=== PATIENT | female | born 1945 | race Caucasian/White ===

== ENCOUNTER → 2020-07-01 13:07 | Outpatient (BNVA) | payer MEDICARE, SELFPAY | PROVIDERS: PCP Internal Medicine; Visit Provider Hospitalist | DX: J84.9 Interstitial pulmonary disease, unspecified (principal); M35.02 Sjogren syndrome with lung involvement; R06.00 Dyspnea, unspecified; E66.9 Obesity, unspecified | CPT/HCPCS: 99212 ==

== ENCOUNTER 2020-07-05 12:38 | Outpatient (REF) | payer MEDICARE, SELFPAY ==
[2020-07-05 13:31] LABS: MANUAL DIFF FLAG NO
[2020-07-05 13:35] LABS: Basophils Absolute Auto 0.1 X10*3/uL (0.0-0.2); Basophils Percent Auto 1.1 % (0-2); Eosinophils Absolute Auto 0.5 X10*3/uL (0.0-0.4); Eosinophils Percent Auto 8.4 % (0-4); Hematocrit 44.5 % (37-47); Hemoglobin 14.2 g/dl (12.0-16.0); Imm Gran Abs Auto 0.01 X10*3/uL (0.00-0.03); Imm Gran Pct Auto 0.2 % (0.0-0.4); Lymphocytes Absolute Auto 1.2 X10*3/uL (1.2-4.9); Mean Corpuscular HGB Conc 31.9 g/dl (31.0-35.0); Mean Corpuscular Hemoglobin 29.6 pg (27.0-33.0); Mean Corpuscular Volume 92.7 fL (80-98); Mean Platelet Volume 9.9 fL (9.4-12.3); Monocytes Absolute Auto 0.6 X10*3/uL (0.1-1.2); Monocytes Percent Auto 9.8 % (2-11); Neutrophils Absolute Auto 3.4 X10*3/uL (2.0-8.3); Neutrophils Percent Auto 59.5 % (45-73); Platelet Count 245 X10*3/uL (160-400); Red Cell Distribution Width 12.7 % (11.0-16.0); White Blood Count 5.7 X10*3/uL (4.8-10.8)
[2020-07-05 13:59] LABS: Alanine Aminotransferase 12 U/L (0-31); Alkaline Phosphatase 56 U/L (39-117); Anion Gap 11 (12-20); Aspartate Amino Transferase 17 U/L (5-31); Bilirubin Direct 0.3 mg/dL (0.0-0.5); Bilirubin Total 0.7 mg/dL (0.0-1.0); Blood Urea Nitrogen 10 mg/dL (9-16); Calcium 9.1 mg/dL (8.4-10.2); Carbon Dioxide 31 mmol/L (22-29); Chloride 105 mmol/L (96-108); Cholesterol 222 mg/dL; Estimated Glomerular Filt Rate > 60; Glucose Random 103 mg/dL (60-115); HDL Cholesterol 57 mg/dL; Sodium 142 mmol/L (135-145); Total Protein 7.8 g/dL (6.5-8.0)
[2020-07-05 14:21] LABS: Thyroid Stimulating Hormone 2.64 uIU/mL (0.32-4.0)
[2020-07-05 14:31] LABS: Erythrocyte Sedimentation Rate 27 MM/HR (0-20)
[2020-07-06 07:57] LABS: LDL Cholesterol Direct 155 mg/dL (<100)
[2020-07-09 15:42] LABS: VITAMIN D (1,25 OH) D3 53 pg/mL; Vit D (1,25-Dihydroxy) Total 53 pg/mL (18-72); Vitamin D (1,25 OH) D2 <8 pg/mL
== END 2020-07-05 12:39 | disposition home or self-care (01) ==
LOC: HO.LAB 12:38
PROVIDERS: PCP Internal Medicine; Visit Provider Hospitalist
DX: M35.02 Sjogren syndrome with lung involvement (principal); E66.9 Obesity, unspecified; R06.00 Dyspnea, unspecified
CPT/HCPCS: 36415; 80048; 80076; 82306; 82465; 82652; 83718; 83721; 84443; 85025; 85652

== ENCOUNTER 2020-08-30 12:52 | Outpatient (REF) | payer MEDICARE, SELFPAY ==
--- NOTE | ~2020-08-30 | CT_ITS ---
EXAMINATION: CT CHEST WITHOUT CONTRAST CLINICAL INFORMATION: Interstitial pulmonary disease. COMPARISON: Multiple priors, most recently 06/06/2019. TECHNIQUE: Multidetector volumetric CT imaging of the chest was done. Axial MIP volume rendering provided. Sagittal and coronal reformatted images were obtained. This CT examination was performed using dose optimization techniques as appropriate, variously including the following: *Automated exposure control *Adjustment of mA and/or kV according to patient size (this includes techniques or standardized protocols for targeted exams where dose is matched to indication/reason for exam; i.e. extremities or head) *Use of iterative reconstruction technique DLP: 338 mGy-cm FINDINGS: LUNGS: The central airways are patent. Septal thickening noted, greatest at the lower lungs. Scattered mosaic groundglass appearance of the lung parenchyma. No dense consolidation. Minimal bronchiectasis. No honeycombing. The extent of groundglass disease is mildly increased at the apices compared to the 2019 study. No pneumothorax. No emphysema noted. MEDIASTINUM: Normal heart size. No pericardial effusion. No mediastinal lymphadenopathy. PLEURA: There is no pleural effusion. No pleural mass or thickening. AXILLA: No lymphadenopathy. UPPER ABDOMEN: Unremarkable. OSSEOUS STRUCTURES: No acute or suspicious osseous abnormality. Degenerative changes noted in the spine. CT/CT chest wo con IMPRESSION: Changes of interstitial lung disease with septal thickening and groundglass attenuation in the lungs. Mild increase in groundglass disease at the upper lungs when compared to prior.
== END 2020-08-30 12:53 | disposition home or self-care (01) ==
LOC: HO.CT 12:52
PROVIDERS: Visit Provider Hospitalist
DX: R06.00 Dyspnea, unspecified (principal); E66.9 Obesity, unspecified; M35.02 Sjogren syndrome with lung involvement; J84.9 Interstitial pulmonary disease, unspecified
CPT/HCPCS: 71250

== ENCOUNTER 2020-09-16 08:12 | Outpatient (REF) | payer MEDICARE, SELFPAY ==
[2020-09-16 09:46] LABS: MANUAL DIFF FLAG NO
[2020-09-16 09:54] LABS: Basophils Absolute Auto 0.1 X10*3/uL (0.0-0.2); Basophils Percent Auto 0.9 % (0-2); Eosinophils Absolute Auto 0.3 X10*3/uL (0.0-0.4); Eosinophils Percent Auto 6.2 % (0-4); Hematocrit 41.9 % (37-47); Hemoglobin 13.7 g/dl (12.0-16.0); Imm Gran Abs Auto 0.01 X10*3/uL (0.00-0.03); Imm Gran Pct Auto 0.2 % (0.0-0.4); Lymphocytes Absolute Auto 1.1 X10*3/uL (1.2-4.9); Lymphocytes Percent Auto 20.6 % (20-40); Mean Corpuscular HGB Conc 32.7 g/dl (31.0-35.0); Mean Corpuscular Hemoglobin 29.9 pg (27.0-33.0); Mean Corpuscular Volume 91.5 fL (80-98); Mean Platelet Volume 9.9 fL (9.4-12.3); Monocytes Absolute Auto 0.6 X10*3/uL (0.1-1.2); Monocytes Percent Auto 10.4 % (2-11); Neutrophils Absolute Auto 3.3 X10*3/uL (2.0-8.3); Neutrophils Percent Auto 61.7 % (45-73); Platelet Count 241 X10*3/uL (160-400); Red Blood Count 4.58 X10*6/uL (4.20-5.50); Red Cell Distribution Width 13.1 % (11.0-16.0); White Blood Count 5.3 X10*3/uL (4.8-10.8)
[2020-09-16 09:57] LABS: Glucose Urine UA NEG (NEG); Leukocyte Esterase Urine NEG (NEG); Nitrite Urine NEG (NEG); PH 5.5 (5.0-8.0); Specific Gravity - Urine >= 1.030 (1.005-1.025); Urine Blood NEG (NEG); Urine Ketones NEG (NEG); Urine Protein NEG (NEG-TRACE)
[2020-09-16 09:59] LABS: Appearance Urine HAZY; Color Urine YELLOW
[2020-09-16 10:13] LABS: Mucus Urine 2+ /LPF; Renal Epithelial Cells Urine TRACE /LPF; Squamous Epithelial Cell Urine TRACE /LPF
[2020-09-16 10:44] LABS: Alanine Aminotransferase 11 U/L (0-31); Albumin Level 3.9 g/dL (3.5-5.0); Alkaline Phosphatase 47 U/L (39-117); Anion Gap 15 (12-20); Aspartate Amino Transferase 19 U/L (5-31); Bilirubin Total 0.5 mg/dL (0.0-1.0); Blood Urea Nitrogen 13 mg/dL (9-16); C Reactive Protein 0.19 mg/dL (< or = 0.50); Calcium 8.8 mg/dL (8.4-10.2); Carbon Dioxide 24 mmol/L (22-29); Chloride 106 mmol/L (96-108); Estimated Glomerular Filt Rate 60; Glucose Random 121 mg/dL (60-115); HBsAGNum1 0.14 S/CO (0.00-0.99); Hepatitis B Surface Antigen Negative (Negative); Potassium 3.8 mmol/L (3.3-5.1); Rheumatoid Factor 153.1 IU/mL (<15.0); Sodium 141 mmol/L (135-145); Total Protein 7.6 g/dL (6.5-8.0)
[2020-09-16 10:59] LABS: HBS Num1 0.66 mIU/mL (0-7.99); HBc Num1 0.05 S/CO (0.00-0.79); Hepatitis B Core Antibody Nonreactive (Nonreactive); ~HepC Num1 0.13 S/CO (0.00-0.79); ~Hepatitis B Surface Antibody NONREACTIVE (Nonreactive); ~Hepatitis C Antibody Nonreactive (Nonreactive)
[2020-09-16 11:16] LABS: Erythrocyte Sedimentation Rate 23 MM/HR (0-20)
[2020-09-17 05:21] LABS: Hepatitis A Antibody IgM 0.21 Index (0-0.79); ~Hepatitis A Antibody IgM Nonreactive (Nonreactive)
[2020-09-17 12:12] LABS: Anti DNA DS Antibody <1 IU/mL; Antibody to SS-A Antigen >8.0 POS AI (<1.0 NEG); Antibody to SS-B Antigen >8.0 POS AI (<1.0 NEG); SM/Ribonucleoprotein Ab <1.0 NEG AI (<1.0 NEG); Smith Protein <1.0 NEG AI (<1.0 NEG)
[2020-09-17 14:13] LABS: IgA 239 mg/dL (70-320); IgG 1886 mg/dL (600-1540); IgM 146 mg/dL (50-300)
[2020-09-17 14:36] LABS: Prot Elec - Albumin 3.9 g/dL (3.8-4.8); Prot Elec - Alpha1 0.3 g/dL (0.2-0.3); Prot Elec - Alpha2 0.7 g/dL (0.5-0.9); Prot Elec - Beta 1 0.4 g/dL (0.4-0.6); Prot Elec - Beta 2 0.4 g/dL (0.2-0.5); Prot Elec - Gamma 1.8 g/dL (0.8-1.7); Prot Elec - Total Protein 7.6 g/dL (6.1-8.1)
[2020-09-17 22:17] LABS: Cyclic Citrullinated Peptide <16 UNITS
[2020-09-18 05:41] LABS: Complement C3 121 mg/dL (83-193)
== END 2020-09-16 08:13 | disposition home or self-care (01) ==
LOC: HO.LAB 08:12
PROVIDERS: PCP Internal Medicine; Visit Provider Student in an Organized Health Care Education/Training Program
DX: M35.02 Sjogren syndrome with lung involvement (principal); Z79.52 Long term (current) use of systemic steroids
CPT/HCPCS: 36415; 80053; 81001; 82784; 84155; 84165; 85025; 85652; 86140; 86160; 86200; 86225; 86235; 86334; 86431; 86704; 86706; 86709; 86803; 87340; 99202

== ENCOUNTER 2020-09-21 10:46 | Outpatient (REF) | payer MEDICARE, SELFPAY ==
--- NOTE | ~2020-09-21 | MM_ITS ---
EXAMINATION: BONE DENSITOMETRY CLINICAL INDICATION: Long-term (current) use of systemic steroids. COMPARISON: Previous BD dated 03/09/2017 and baseline BD dated 10/01/2008 (lumbar spine). This is the initial examination of the left forearm radius 33%. TECHNIQUE: Using a [employer] DXA System (software version: 13.1) manufactured by [employer], dual-energy x-ray absorptiometry was performed of the lumbar spine and left forearm radius 33%. The patient has had bilateral hip replacements. The images are of good technical quality. Summary results are attached. FINDINGS: AP SPINE L1-L4 (excluding L2 and L3): The data of L1-L4 has been changed to exclude the L2 and L3 vertebral bodies, because degenerative sclerosis at these levels may cause overestimation of lumbar spine density. Current: BMD 1.292 g/cm2, Z-score 1.6, T-score 1.1, normal, 8.2% decrease from previous, 14.0% decrease from baseline (<5% change is not significant). Prior: BMD 1.407 g/cm2. Baseline: BMD 1.502 g/cm2. LEFT FOREARM RADIUS 33%: BMD 0.943 g/cm2, Z-score 2.9, T-score 0.8, normal. IDENTIFIED RISK FACTORS: Height loss. Low calcium intake. Chronic glucocorticoids. Menopause. HISTORY OF FRACTURE: None listed. MEDICATIONS: Vitamin D. MM/XR DEXA axial skeleton IMPRESSION: 1. DIAGNOSIS: Normal bone density based on the lowest T-score value of 0.8 in the left forearm radius 33% applying World Health Organization criteria. 2. 10-YEAR FRACTURE RISK PREDICTION, FRAX: Not performed in this patient without a femoral neck BMD measurement. 3. Treatment Recommendations: NOF guidelines recommend consideration for treatment in postmenopausal women and men age 50 and older presenting with the following: -A hip or vertebral (clinical or morphometric) fracture. -T-score less than or equal to -2.5 at the femoral neck or spine after appropriate evaluation to exclude secondary causes. -Low bone mass at the hip or spine and a 10-year fracture probability by FRAX of greater than or equal to 3% for hip fracture or greater than or equal to 20% for major osteoporotic fracture based on the [place] adapted WHO algorithm. 4. Other Recommendations: All treatment decisions require clinical judgment and consideration of individual patient factors, including patient preferences, comorbidities, previous drug use, risk factors not captured in the FRAX model (e.g. frailty, falls, vitamin D deficiency, increased bone turnover, interval significant decline in bone density) and possible under or overestimation of fracture risk by FRAX. FUTURE SCAN RECOMMENDATION: People with diagnosed cases of osteoporosis or at high risk for fracture should have regular bone mineral density tests. For patients eligible for Medicare, routine testing is allowed once every 2 years. The testing frequency can be increased to one year for patients who have rapidly progressing disease, those who are receiving or discontinuing medical therapy to restore bone mass, or have additional risk factors.
== END 2020-09-21 10:47 | disposition home or self-care (01) ==
LOC: HO.MAMMO 10:46
PROVIDERS: Visit Provider Student in an Organized Health Care Education/Training Program
DX: Z13.820 Encounter for screening for osteoporosis (principal); E27.49 Other adrenocortical insufficiency; Z78.0 Asymptomatic menopausal state; Z79.52 Long term (current) use of systemic steroids; Z79.899 Other long term (current) drug therapy
CPT/HCPCS: 77080

== ENCOUNTER → 2020-10-12 10:32 | Outpatient (BNVA) | payer MEDICARE, SELFPAY | PROVIDERS: PCP Internal Medicine; Visit Provider Student in an Organized Health Care Education/Training Program | DX: M35.02 Sjogren syndrome with lung involvement (principal); R76.8 Other specified abnormal immunological findings in serum; Z79.52 Long term (current) use of systemic steroids | CPT/HCPCS: 99212 ==

== ENCOUNTER 2020-11-04 13:01 | Outpatient (REF) | payer MEDICARE, SELFPAY ==
--- NOTE | ~2020-11-04 | XR_ITS ---
EXAMINATION: XR HAND WRIST, RIGHT XR HAND WRIST, LEFT CLINICAL INFORMATION: R76.8 - Other specified abnormal immunological findings. CT chest 2019 report notes history of Sjogren's syndrome. COMPARISON: CT chest 08/30/2020; bone densitometry 09/21/2020 TECHNIQUE: The right hand and wrist are imaged together in 3 large arrpc-wp-[id number] view images with additional navicular view provided for a total of 4 views. The left hand and wrist are imaged together in 3 large iebmx-jp-opob view images with additional navicular view provided for a total of 4 views. There are total of 8 views. FINDINGS: Right: There is no fracture or dislocation or destructive process. The ulnar variance is neutral. There is mild narrowing lateral carpus at the triscaphe joint and osteoarthritic changes at the first carpometacarpal joint. No erosive change or carpal chondrocalcinosis. There is narrowing of the second and third MCP joints. Spurring is present third metacarpal head possibly related to old injury. No significant joint narrowing PIP joints. There are degenerative changes DIP joints greatest second and third fingers. No erosive changes. Left: There is no fracture or dislocation or destructive process. The ulnar variance is neutral. There is mild narrowing lateral carpus at the triscaphe joint and osteoarthritic changes first carpometacarpal joint. There is mild narrowing first MCP joint. No erosive change. Mild degenerative change second and third PIP joints and degenerative changes DIP joints greatest second and third fingers. No erosive changes. XR/XR hand wrist RT IMPRESSION: 1. Bilateral narrowing triscaphe joints and bilateral osteoarthritis first carpal metacarpal joints. 2. Narrowing right second and third MCP joints and left first MCP joint. 3. Variable degenerative changes interphalangeal joints. 4. No erosive changes.
--- NOTE | ~2020-11-04 | XR_ITS ---
EXAMINATION: XR HAND WRIST, RIGHT XR HAND WRIST, LEFT CLINICAL INFORMATION: R76.8 - Other specified abnormal immunological findings. CT chest 2019 report notes history of Sjogren's syndrome. COMPARISON: CT chest 08/30/2020; bone densitometry 09/21/2020 TECHNIQUE: The right hand and wrist are imaged together in 3 large iirsu-bg-faeq view images with additional navicular view provided for a total of 4 views. The left hand and wrist are imaged together in 3 large xgkrv-qw-coqt view images with additional navicular view provided for a total of 4 views. There are total of 8 views. FINDINGS: Right: There is no fracture or dislocation or destructive process. The ulnar variance is neutral. There is mild narrowing lateral carpus at the triscaphe joint and osteoarthritic changes at the first carpometacarpal joint. No erosive change or carpal chondrocalcinosis. There is narrowing of the second and third MCP joints. Spurring is present third metacarpal head possibly related to old injury. No significant joint narrowing PIP joints. There are degenerative changes DIP joints greatest second and third fingers. No erosive changes. Left: There is no fracture or dislocation or destructive process. The ulnar variance is neutral. There is mild narrowing lateral carpus at the triscaphe joint and osteoarthritic changes first carpometacarpal joint. There is mild narrowing first MCP joint. No erosive change. Mild degenerative change second and third PIP joints and degenerative changes DIP joints greatest second and third fingers. No erosive changes. XR/XR hand wrist LT IMPRESSION: 1. Bilateral narrowing triscaphe joints and bilateral osteoarthritis first carpal metacarpal joints. 2. Narrowing right second and third MCP joints and left first MCP joint. 3. Variable degenerative changes interphalangeal joints. 4. No erosive changes.
== END 2020-11-04 13:02 | disposition home or self-care (01) ==
LOC: HO.XRAY 13:01
PROVIDERS: Absent Provider Student in an Organized Health Care Education/Training Program; PCP Internal Medicine; Visit Provider Hospitalist
DX: M35.02 Sjogren syndrome with lung involvement (principal); J84.9 Interstitial pulmonary disease, unspecified; R06.00 Dyspnea, unspecified; R76.8 Other specified abnormal immunological findings in serum; E66.01 Morbid (severe) obesity due to excess calories; Z68.41 Body mass index [BMI] 40.0-44.9, adult; Z79.52 Long term (current) use of systemic steroids
CPT/HCPCS: 73110; 73130; 99212

== ENCOUNTER 2020-11-12 11:48 | Outpatient (REF) | payer MEDICARE, SELFPAY ==
--- NOTE | ~2020-11-12 | MM_ITS ---
EXAMINATION: MM SCREENING DIGITAL BREAST TOMOSYNTHESIS, BILATERAL CLINICAL INFORMATION: Screening. Asymptomatic. The lifetime risk of breast cancer based on the Tyrer-Cuzick Model is 4.1%. COMPARISON: Mammography: November 11, 2018 and studies dating back to January 23, 2013 TECHNIQUE: Digital breast tomosynthesis is performed in both the craniocaudal and mediolateral oblique views along with computer-aided detection (CAD). Synthesized 2D images are generated from the tomosynthesis. FINDINGS: There are scattered areas of fibroglandular density (ACR BI-RADS breast composition Category b). There are no significant masses, abnormal calcifications, or other abnormalities. MM/MM tomosynthesis screening BI IMPRESSION: There are no significant changes from prior study. ASSESSMENT: BI-RADS 1: Negative RECOMMENDATION: Routine annual mammography screening. This patient's information was entered into a reminder system with a target due date for their next mammogram.
== END 2020-11-12 11:49 | disposition home or self-care (01) ==
LOC: HO.MAMMO 11:48
PROVIDERS: Visit Provider Internal Medicine
DX: Z12.31 Encounter for screening mammogram for malignant neoplasm of breast (principal)
CPT/HCPCS: 77063; 77067

== ENCOUNTER 2021-01-11 10:04 | Outpatient (REF) | payer MEDICARE, SELFPAY ==
[2021-01-11 10:54] LABS: MANUAL DIFF FLAG NO
[2021-01-11 10:57] LABS: Basophils Percent Auto 0.7 % (0-2); Eosinophils Absolute Auto 0.4 X10*3/uL (0.0-0.4); Eosinophils Percent Auto 7.4 % (0-4); Hematocrit 43.8 % (37-47); Hemoglobin 14.1 g/dl (12.0-16.0); Imm Gran Abs Auto 0.01 X10*3/uL (0.00-0.03); Imm Gran Pct Auto 0.2 % (0.0-0.4); Lymphocytes Absolute Auto 1.3 X10*3/uL (1.2-4.9); Lymphocytes Percent Auto 21.7 % (20-40); Mean Corpuscular HGB Conc 32.2 g/dl (31.0-35.0); Mean Corpuscular Hemoglobin 29.7 pg (27.0-33.0); Mean Corpuscular Volume 92.4 fL (80-98); Mean Platelet Volume 9.7 fL (9.4-12.3); Monocytes Absolute Auto 0.6 X10*3/uL (0.1-1.2); Monocytes Percent Auto 10.4 % (2-11); Neutrophils Absolute Auto 3.5 X10*3/uL (2.0-8.3); Neutrophils Percent Auto 59.6 % (45-73); Platelet Count 235 X10*3/uL (160-400); Red Blood Count 4.74 X10*6/uL (4.20-5.50); Red Cell Distribution Width 12.9 % (11.0-16.0); White Blood Count 5.9 X10*3/uL (4.8-10.8)
[2021-01-11 11:26] LABS: Alanine Aminotransferase 12 U/L (0-31); Alkaline Phosphatase 49 U/L (39-117); Anion Gap 12 (12-20); Aspartate Amino Transferase 19 U/L (5-31); Bilirubin Total 0.8 mg/dL (0.0-1.0); Blood Urea Nitrogen 12 mg/dL (9-16); Calcium 9.6 mg/dL (8.4-10.2); Carbon Dioxide 29 mmol/L (22-29); Chloride 106 mmol/L (96-108); Estimated Glomerular Filt Rate 57; Glucose Random 101 mg/dL (60-115); Potassium 4.7 mmol/L (3.3-5.1); Sodium 142 mmol/L (135-145); Total Protein 7.9 g/dL (6.5-8.0)
[2021-01-11 11:59] LABS: Erythrocyte Sedimentation Rate 25 MM/HR (0-20)
== END 2021-01-11 10:05 | disposition home or self-care (01) ==
LOC: HO.LAB 10:04
PROVIDERS: PCP Internal Medicine; Visit Provider Student in an Organized Health Care Education/Training Program
DX: M35.02 Sjogren syndrome with lung involvement (principal)
CPT/HCPCS: 36415; 80053; 85025; 85652; 86140

== ENCOUNTER → 2021-01-18 11:26 | Outpatient (BNVA) | payer MEDICARE, SELFPAY | PROVIDERS: Visit Provider Student in an Organized Health Care Education/Training Program | DX: M35.02 Sjogren syndrome with lung involvement (principal); R76.8 Other specified abnormal immunological findings in serum; Z79.52 Long term (current) use of systemic steroids | CPT/HCPCS: 99212 ==

== ENCOUNTER 2021-05-04 12:03 | Outpatient (REF) | payer MEDICARE, SELFPAY ==
[2021-05-04 12:22] LABS: MANUAL DIFF FLAG NO
[2021-05-04 13:07] LABS: Basophils Absolute Auto 0.1 X10*3/uL (0.0-0.2); Basophils Percent Auto 0.9 % (0-2); Eosinophils Absolute Auto 0.5 X10*3/uL (0.0-0.4); Eosinophils Percent Auto 8.3 % (0-4); Hematocrit 43.2 % (37.0-47.0); Hemoglobin 14.1 g/dl (12.0-16.0); Imm Gran Abs Auto 0.01 X10*3/uL (0.00-0.03); Imm Gran Pct Auto 0.2 % (0.0-0.4); Lymphocytes Absolute Auto 1.4 X10*3/uL (1.2-4.9); Lymphocytes Percent Auto 26.3 % (20-40); Mean Corpuscular HGB Conc 32.6 g/dl (31.0-35.0); Mean Corpuscular Hemoglobin 29.7 pg (27.0-33.0); Mean Corpuscular Volume 91.1 fL (80.0-98.0); Mean Platelet Volume 10.4 fL (9.4-12.3); Monocytes Absolute Auto 0.6 X10*3/uL (0.1-1.2); Monocytes Percent Auto 10.1 % (2-11); Neutrophils Absolute Auto 2.9 x10*3/uL (2.0-8.3); Neutrophils Percent Auto 54.2 % (45-73); Platelet Count 237 X10*3/uL (160-400); Red Blood Count 4.74 X10*6/uL (4.20-5.50); Red Cell Distribution Width 13.2 % (11.0-16.0); White Blood Count 5.4 X10*3/uL (4.8-10.8)
[2021-05-04 13:31] LABS: Alanine Aminotransferase 16 U/L (0-31); Alkaline Phosphatase 53 U/L (39-117); Anion Gap 13 (12-20); Aspartate Amino Transferase 23 U/L (5-31); Bilirubin Total 0.8 mg/dL (0.0-1.0); Blood Urea Nitrogen 11 mg/dL (9-16); C Reactive Protein 0.13 mg/dL (< or = 0.50); Calcium 9.5 mg/dL (8.4-10.2); Carbon Dioxide 29 mmol/L (22-29); Chloride 104 mmol/L (96-108); Cholesterol 229 mg/dL; Estimated Glomerular Filt Rate 57; Glucose Random 107 mg/dL (60-115); HDL Cholesterol 54 mg/dL; LDL Cholesterol Calculated 146 mg/dl; Potassium 4.8 mmol/L (3.3-5.1); Sodium 141 mmol/L (135-145); Total Protein 7.8 g/dL (6.5-8.0); Triglycerides 145 mg/dL
[2021-05-04 13:53] LABS: Free T4 (Free Thyroxine) 0.91 ng/dL (0.71-1.85); Thyroid Stimulating Hormone 2.72 uIU/mL (0.32-4.0)
[2021-05-04 14:03] LABS: Erythrocyte Sedimentation Rate 27 MM/HR (0-20)
[2021-05-04 14:16] LABS: Vitamin B12 298 pg/mL (200-900)
== END 2021-05-04 12:04 | disposition home or self-care (01) ==
LOC: HO.LAB 12:03
PROVIDERS: Absent Provider Student in an Organized Health Care Education/Training Program; PCP Internal Medicine; Visit Provider Internal Medicine
DX: M35.02 Sjogren syndrome with lung involvement (principal); E78.00 Pure hypercholesterolemia, unspecified; R53.83 Other fatigue
CPT/HCPCS: 36415; 80053; 80061; 82607; 84439; 84443; 85025; 85652; 86140

== ENCOUNTER → 2021-05-06 12:47 | Outpatient (BNVA) | payer MEDICARE, SELFPAY | PROVIDERS: PCP Internal Medicine; Visit Provider Hospitalist | DX: M35.02 Sjogren syndrome with lung involvement (principal); J84.9 Interstitial pulmonary disease, unspecified; F51.01 Primary insomnia; E66.01 Morbid (severe) obesity due to excess calories; Z68.41 Body mass index [BMI] 40.0-44.9, adult; Z79.52 Long term (current) use of systemic steroids | CPT/HCPCS: 99212 ==

== ENCOUNTER → 2021-09-02 12:56 | Outpatient (BNVA) | payer MEDICARE, SELFPAY | PROVIDERS: PCP Internal Medicine; Visit Provider Hospitalist | DX: J84.9 Interstitial pulmonary disease, unspecified (principal); M35.02 Sjogren syndrome with lung involvement; E66.01 Morbid (severe) obesity due to excess calories; F51.01 Primary insomnia; Z79.52 Long term (current) use of systemic steroids; Z68.41 Body mass index [BMI] 40.0-44.9, adult | CPT/HCPCS: 99212 ==

== ENCOUNTER 2021-10-12 09:29 | Outpatient (REF) | payer MEDICARE, SELFPAY ==
[2021-10-12 10:56] LABS: Alanine Aminotransferase 15 U/L (0-31); Albumin Level 3.8 g/dL (3.5-5.0); Alkaline Phosphatase 48 U/L (39-117); Anion Gap 11 (12-20); Aspartate Amino Transferase 21 U/L (5-31); Bilirubin Total 0.5 mg/dL (0.0-1.0); Blood Urea Nitrogen 12 mg/dL (9-16); Calcium 9.5 mg/dL (8.4-10.2); Carbon Dioxide 30 mmol/L (22-29); Chloride 104 mmol/L (96-108); Estimated Glomerular Filt Rate 60; Glucose Random 96 mg/dL (60-115); Potassium 4.3 mmol/L (3.3-5.1); Sodium 141 mmol/L (135-145); Total Protein 7.5 g/dL (6.5-8.0)
[2021-10-14 08:30] LABS: SARS COV2 IgG Negative (Negative)
== END 2021-10-12 09:30 | disposition home or self-care (01) ==
LOC: HO.LAB 09:29
PROVIDERS: PCP Internal Medicine; Visit Provider Internal Medicine
DX: Z20.822 Contact with and (suspected) exposure to COVID-19 (principal); J84.9 Interstitial pulmonary disease, unspecified; E78.00 Pure hypercholesterolemia, unspecified; N18.9 Chronic kidney disease, unspecified
CPT/HCPCS: 36415; 80053; 86769

== ENCOUNTER 2021-12-05 12:55 | Outpatient (REF) | payer MEDICARE, SELFPAY ==
--- NOTE | 2021-12-05 17:18 | PFT_ITS ---
FLOWS: FEV1 88% of predicted at 1.96 L. FVC 72% of predicted at 2.16 L. FEV1 to FVC ratio of 0.91. No bronchodilator response. LUNG VOLUMES: Total lung capacity 70% of predicted at 3.65 L. Residual volume 68% of predicted at 1.58 L. Slow vital capacity 71% of predicted at 2.06 L. Expiratory reserve volume 41% of predicted at 0.3 L. Diffusion capacity is moderately decreased, diffusion capacity corrects to normal after adjustment for alveolar ventilation. IMPRESSION: Mild restrictive ventilatory defect with no bronchodilator response. Decreased expiratory reserve volume suggests extrathoracic restriction likely secondary to abdominal obesity. Feng Chaparro MD AP/MODL / [id number]
== END 2021-12-05 12:56 | disposition home or self-care (01) ==
LOC: HO.RESP 12:55
PROVIDERS: PCP Internal Medicine; Visit Provider Hospitalist
DX: M35.02 Sjogren syndrome with lung involvement (principal); J84.9 Interstitial pulmonary disease, unspecified; F51.01 Primary insomnia; E66.01 Morbid (severe) obesity due to excess calories; Z68.41 Body mass index [BMI] 40.0-44.9, adult; Z79.52 Long term (current) use of systemic steroids; Z71.3 Dietary counseling and surveillance
CPT/HCPCS: 94060; 94727; 94729; 99212

== ENCOUNTER 2021-12-12 07:43 | Day surgery (SDC) | payer MEDICARE, SELFPAY ==
[2021-12-02 15:05] VITALS: BMI 40.4
--- NOTE | 2021-12-08 09:54 | HP_ITS ---
DATE OF SERVICE: 12/12/2021 HISTORY OF PRESENT ILLNESS: Patient is a 76-year-old female, who was seen in the office on 12/06/2021, for preop evaluation prior to cataract surgery scheduled with Dr. Dooley over the next 2 to 3 weeks. Patient has no complaints. She completed PFTs yesterday. PRESENT MEDICATIONS: Baby aspirin, prednisone 4 mg a day, vitamin D, and zolpidem 5 mg at bedtime. ALLERGIES: SHE HAS NO REPORTED ALLERGIES TO MEDICINES. PAST MEDICAL HISTORY: Significant for insomnia, Sjogren syndrome, interstitial lung disease, fatigue, elevated cholesterol, history of colon polyps, obesity, chronic renal insufficiency, peripheral edema. She has had both knees replaced. FAMILY HISTORY: Father at 71 from lung cancer. Mother lived into her late 80s or early 90s. She has 1 brother and 1 sister. Mother at 98. SOCIAL HISTORY: She is , has 2 children. She is retired. REVIEW OF SYSTEMS: Weight is down 9 pounds. No fevers, chills, or sweats. No palpitations or chest pain. Occasional peripheral edema, dry cough. No complaints of shortness of breath or wheezing. No abdominal pain or heartburn. No dysuria. Some nocturia. No joint complaints. Sleep and appetite are normal. Some occasional rhinitis. No skin rashes. No bleeding problems. PHYSICAL EXAMINATION: GENERAL: She is awake and alert, in no distress. VITAL SIGNS: Temperature is 98.8, pulse 68, respirations 12, blood pressure 122/68, oxygen saturation 98% on room air. Weight is 246. She is 5 feet 4-3/4 inches. HEENT: Pupils equal. TMs clear. Pharynx clear. NECK: Supple. No lymph nodes, bruits, or masses. HEART: Sounds S1 and S2. Regular rate and rhythm. LUNGS: Clear. ABDOMEN: Soft, nontender. Positive bowel sounds. No HSM. EXTREMITIES: Positive edema, 1+ pulses. NEUROLOGICAL: Intact. Cranial nerves II through XII are intact. ASSESSMENT AND PLAN: She is medically stable for the proposed procedure. I will be available if there are any medical questions. Bebeto Almaraz MD FC/MODL / [phone]
--- NOTE | 2021-12-08 14:54 | MHC.SHP ---
Pre-Procedural Eval Section A Date of Service: 12/08/21 The patient is an INPATIENT: No Changes since office visit: No Cold of Flu in the past 2 weeks, No New Medical Problems, No Changes in Medication and No Patient answered all questions The History & Physical has been completed within 30 days and I have reviewed it.: Yes Section B Chief Complaint: Age-related nuclear cataract, left eye Allergies: Allergies Allergy/AdvReac Type Severity Reaction Status Date / Time No Known Allergies Allergy Verified 12/05/21 14:12 Plan Diagnosis/Plan: Unchanged I have reviewed the history and physical and performed a pertinent physical examination on my patient. No changes have occurred unless specified.
--- NOTE | 2021-12-09 11:38 | HO.ANESPROP2 ---
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) Rheumatoid factor positive (Acute) Insomnia (Acute) Interstitial lung disease (Acute) Dyspnea (Acute) Obesity (Acute) Sjogren's syndrome with lung involvement (Acute) Past Medical History Medical History (Updated 12/02/21 @ 15:04 by Rochelle Raymundo RN) COPD (chronic obstructive pulmonary disease) COVID-19 vaccine series completed Osteoarthritis Surgical History Surgical History (Updated 12/02/21 @ 15:04 by Rochelle Raymundo RN) H/O colonoscopy History of bilateral total hip arthroplasty History of total bilateral knee replacement Social History Social History (Updated 05/06/21 @ 13:03 by Sofia Sewell Sebastien) Are you a primary home child care provider to a significant other at home: No Do you presently have visiting nurse or other home services: No Alcohol intake: never Patient Tobacco Use Status: Never used Tobacco Tobacco use type: Smokeless Tobacco Use of substances other than those prescribed or required for medical reasons: No Have you been hit, kicked, punched, or otherwise hurt by someone within the past year? If so, by whom?: No Are you DNR?: No Advance Directives: No (states is -unsure if has official HCP form) Advance Directives Information Provided: Yes Advance Directives on File: No Recently lost weight without trying: No Eating poorly because of decreased appetite: No Nutrition Risks: No Nutritional Risk Poor oral hygiene: No Meds Allergies Allergy/AdvReac Type Severity Reaction Status Date / Time No Known Allergies Allergy Verified 12/05/21 14:12 Home Medications Medication Instructions Recorded Confirmed Last Taken Type aspirin 81 mg tablet,delayed 81 mg PO DAILY 07/01/20 12/02/21 Unknown History release cholecalciferol (vitamin D3) 25 25 mcg PO DAILY 07/01/20 12/02/21 Unknown History mcg (1,000 unit) capsule zolpidem 10 mg tablet (Ambien) 5 mg PO BEDTIME 12/02/21 12/02/21 Unknown History Exam Exam Date and Time: December 09, 2021 1138 Height,Weight and Vital Signs: Height 5 ft 5 in Weight 110.223 kg Assessment and Plan Assessment Anesthesia Assessment: Chart Reviewed Documented by User: Winifred Zhong MD 12/12/21 10:22 [facility] Past Medical History Medical History (Updated 12/02/21 @ 15:04 by Rochelle Raymundo RN) COPD (chronic obstructive pulmonary disease) COVID-19 vaccine series completed Osteoarthritis Family History Family history of problems with anesthesia: No Surgical History Surgical History (Updated 12/02/21 @ 15:04 by Rochelle Raymundo RN) H/O colonoscopy History of bilateral total hip arthroplasty History of total bilateral knee replacement History of Problems with Anesthesia: No Social History Social History (Updated 05/06/21 @ 13:03 by Sofia Sewell Sebastien) Are you a primary home child care provider to a significant other at home: No Do you presently have visiting nurse or other home services: No Alcohol intake: never Patient Tobacco Use Status: Never used Tobacco Tobacco use type: Smokeless Tobacco Use of substances other than those prescribed or required for medical reasons: No Have you been hit, kicked, punched, or otherwise hurt by someone within the past year? If so, by whom?: No Are you DNR?: No Advance Directives: No (states is -unsure if has official HCP form) Advance Directives Information Provided: Yes Advance Directives on File: No Recently lost weight without trying: No Eating poorly because of decreased appetite: No Nutrition Risks: No Nutritional Risk Poor oral hygiene: No Meds Allergies Allergy/AdvReac Type Severity Reaction Status Date / Time No Known Allergies Allergy Verified 12/05/21 14:12 Home Medications Medication Instructions Recorded Confirmed Last Taken Type aspirin 81 mg tablet,delayed 81 mg PO DAILY 07/01/20 12/02/21 Unknown History release cholecalciferol (vitamin D3) 25 25 mcg PO DAILY 07/01/20 12/02/21 Unknown History mcg (1,000 unit) capsule zolpidem 10 mg tablet (Ambien) 5 mg PO BEDTIME 12/02/21 12/02/21 Unknown History Exam Airway Mallampati Class: I TM Dist: >3cm Neck ROM: Full Assessment and Plan Assessment Anesthesia Assessment: Anesthesia Plan Discussed Final Anesthetic Review Family History of Problems with Anesthesia: No History of Problems with Anesthesia: No NPO: Yes ASA Class: III Final Preanesthetic Review: No Changes in Pt Med Stat, Meds/Allgs Chart Reviewed, Consent Obtained/Reviewed and Anes Risks/Benef Reviewed Patient Risk: Low Procedure Risk: Low Anesthetic Plan Anesthetic Plan: MAC: Disposition: Standard PACU
[2021-12-12 09:31] VITALS: BP 147/70; PULSE 62; RESP 18; TEMP 36.7; O2SAT 96
[2021-12-12] MEDS: Tetracaine HCl/PF 0.5% Oph Sol 4 ML DROPS 1 DROP EYE-LEFT (09:34)
[2021-12-12] MEDS: Lactated Ringers 500 ML 50 ML IV (09:38)
[2021-12-12] MEDS: Tropicamide 1 % Ophth Sol 3 ML BTL 1 DROP EYE-LEFT ×3 (09:39→09:48)
[2021-12-12] MEDS: Phenylephrine HCL 2.5% Oph SoL 2 ML BOTTLE 1 DROP EYE-LEFT ×3 (09:43→09:50)
--- NOTE | 2021-12-12 10:55 | HO.PNOPHT ---
Ophthalmology Procedure Procedure Date of Service: 12/12/21 Ophthalmology Viscoelastic: Healon Duet Dual Pack Pro (22) Ophthalmology Lenses: TECNIS [id number] (22) Procedure Notes: PREOPERATIVE DIAGNOSIS: Decreased visual acuity left eye secondary to cataract POSTOPERATIVE DIAGNOSIS: Same PROCEDURE: Left cataract extraction with intraocular lens insertion SURGEON: Fabrice Dooley M.D. ANESTHESIA: Topical/MAC ESTIMATED BLOOD LOSS: None COMPLICATIONS: None After obtaining informed consent, the patient was brought to the operation room suite and placed in the supine position. After adequate sedation per anesthesia, topical drops of Tetracaine were given to the left eye. The eye was then prepped and draped in the usual sterile fashion. The operating room microscope was then positioned over the operative eye and a lid speculum placed. A paracentesis was created. Viscoelastic was then instilled into the anterior chamber. A three plane incision was then created temporally, utilizing a 2.85 mm keratome. Capsulotomy forceps were then utilized to create a circular tear capsulotomy. Hydrodissection and hydrodelineation were carried out until adequate mobilization of the nucleus occurred. Phacoemulsification was then utilized to remove the dense central nucleus followed by removal of the cortical material utilizing the automated aspiration irrigation unit. Viscoat elastic was instilled into the posterior capsular bag followed by placement of a posterior chamber intraocular lens without difficulty. The residual Viscoat elastic was then removed utilizing the automated IA machine. The wound was check and found to be watertight. The patient tolerated the procedure well and the lid speculum was removed. Intracameral injection of Vigamox 0.1 mL followed by a subtenon injection of Kenalog-40 0.2 mL were administered. The patient will be seen in the a.m.
[2021-12-12 11:21] VITALS: BP 141/74; PULSE 56; RESP 16; TEMP 36.2; O2SAT 98
== END 2021-12-12 11:24 | disposition home or self-care (01) ==
PROVIDERS: PCP Internal Medicine; Visit Provider Ophthalmology
PROC: (CPT 66985; principal; 2021-12-12 10:40)
DX: H25.12 Age-related nuclear cataract, left eye (principal); H52.4 Presbyopia; M35.00 Sjogren syndrome, unspecified; E78.00 Pure hypercholesterolemia, unspecified; Z96.643 Presence of artificial hip joint, bilateral; Z96.653 Presence of artificial knee joint, bilateral; Z79.82 Long term (current) use of aspirin; Z79.52 Long term (current) use of systemic steroids; Z79.899 Other long term (current) drug therapy
CPT/HCPCS: 66984; J2250; J3010; J3300; V2632

== ENCOUNTER 2022-01-02 08:06 | Day surgery (SDC) | payer MEDICARE, SELFPAY ==
[2021-12-02 15:07] VITALS: BMI 40.4
--- NOTE | 2021-12-29 13:15 | MHC.SHP ---
Pre-Procedural Eval Section A Date of Service: 12/29/21 The patient is an INPATIENT: No Changes since office visit: No Cold of Flu in the past 2 weeks, No New Medical Problems, No Changes in Medication and No Patient answered all questions The History & Physical has been completed within 30 days and I have reviewed it.: Yes Section B Chief Complaint: Age-related nuclear cataract, right eye Allergies: Allergies Allergy/AdvReac Type Severity Reaction Status Date / Time No Known Allergies Allergy Verified 12/05/21 14:12 Plan I have reviewed the history and physical and performed a pertinent physical examination on my patient. No changes have occurred unless specified.
--- NOTE | 2021-12-30 09:19 | HO.ANESPROP2 ---
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) Rheumatoid factor positive (Acute) Insomnia (Acute) Interstitial lung disease (Acute) Dyspnea (Acute) Obesity (Acute) Sjogren's syndrome with lung involvement (Acute) Past Medical History Medical History COPD (chronic obstructive pulmonary disease) COVID-19 vaccine series completed Dyspnea Insomnia Interstitial lung disease Obesity Osteoarthritis Sjogren's syndrome with lung involvement Family History Family history of problems with anesthesia: No Surgical History Surgical History H/O colonoscopy History of bilateral total hip arthroplasty History of total bilateral knee replacement History of Problems with Anesthesia: No Social History Social History Are you a primary residential care officer to a significant other at home: No Do you presently have visiting nurse or other home services: No Alcohol intake: never Patient Tobacco Use Status: Never used Tobacco Tobacco use type: Smokeless Tobacco Use of substances other than those prescribed or required for medical reasons: No Have you been hit, kicked, punched, or otherwise hurt by someone within the past year? If so, by whom?: No Are you DNR?: No Advance Directives: No Advance Directives Information Provided: Yes (brochure mailed) Advance Directives on File: No Recently lost weight without trying: No Eating poorly because of decreased appetite: No Nutrition Risks: No Nutritional Risk Poor oral hygiene: No Meds Allergies Allergy/AdvReac Type Severity Reaction Status Date / Time No Known Allergies Allergy Verified 12/05/21 14:12 Home Medications Medication Instructions Recorded Confirmed Last Taken Type aspirin 81 mg tablet,delayed 81 mg PO DAILY 07/01/20 12/02/21 Unknown History release cholecalciferol (vitamin D3) 25 25 mcg PO DAILY 07/01/20 12/02/21 Unknown History mcg (1,000 unit) capsule zolpidem 10 mg tablet (Ambien) 5 mg PO BEDTIME 12/02/21 12/02/21 Unknown History Exam Exam Date and Time: December 30, [id number] Height,Weight and Vital Signs: Height 5 ft 5 in Weight 110.223 kg Assessment and Plan Assessment Anesthesia Assessment: Chart Reviewed Final Anesthetic Review Family History of Problems with Anesthesia: No History of Problems with Anesthesia: No Documented by User: Christian Fair MD 01/02/22 09:15 [facility] Past Medical History Medical History COPD (chronic obstructive pulmonary disease) COVID-19 vaccine series completed Dyspnea Insomnia Interstitial lung disease Obesity Osteoarthritis Sjogren's syndrome with lung involvement Surgical History Surgical History H/O colonoscopy History of bilateral total hip arthroplasty History of total bilateral knee replacement Social History Social History Are you a primary residential care officer to a significant other at home: No Do you presently have visiting nurse or other home services: No Alcohol intake: never Patient Tobacco Use Status: Never used Tobacco Tobacco use type: Smokeless Tobacco Use of substances other than those prescribed or required for medical reasons: No Have you been hit, kicked, punched, or otherwise hurt by someone within the past year? If so, by whom?: No Are you DNR?: No Advance Directives: No Advance Directives Information Provided: Yes (brochure mailed) Advance Directives on File: No Recently lost weight without trying: No Eating poorly because of decreased appetite: No Nutrition Risks: No Nutritional Risk Poor oral hygiene: No Meds Allergies Allergy/AdvReac Type Severity Reaction Status Date / Time No Known Allergies Allergy Verified 12/05/21 14:12 Home Medications Medication Instructions Recorded Confirmed Last Taken Type aspirin 81 mg tablet,delayed 81 mg PO DAILY 07/01/20 12/02/21 Unknown History release cholecalciferol (vitamin D3) 25 25 mcg PO DAILY 07/01/20 12/02/21 Unknown History mcg (1,000 unit) capsule zolpidem 10 mg tablet (Ambien) 5 mg PO BEDTIME 12/02/21 12/02/21 Unknown History Exam Airway Mallampati Class: II TM Dist: >3cm Neck ROM: Full Loose/Missing/Broken Teeth: No Heart: rrr+s1s2 Lungs: cta b/l Assessment and Plan Final Anesthetic Review NPO: Yes ASA Class: III Final Preanesthetic Review: No Changes in Pt Med Stat, Meds/Allgs Chart Reviewed, Consent Obtained/Reviewed and Anes Risks/Benef Reviewed Patient Risk: Intermediate Procedure Risk: Low Assessment/Block/Sedation in SS: Assess/Block/Sedation-SS Anesthetic Plan Anesthetic Plan: MAC: and Agree w/ Assess. and Plan Disposition: Standard PACU
[2022-01-02 08:18] VITALS: BP 194/98; PULSE 72; RESP 16; TEMP 35.9; O2SAT 96
[2022-01-02] MEDS: Tetracaine HCl/PF 0.5% Oph Sol 4 ML DROPS 1 DROP EYE-RIGHT (10:50)
[2022-01-02] MEDS: Cyclopentolate 1 % Ophth Sol 2 ML DRPBTL 1 DROP EYE-RIGHT ×3 (10:50→11:02)
[2022-01-02] MEDS: Tropicamide 1 % Ophth Sol 3 ML BTL 1 DROP EYE-RIGHT ×3 (10:52→11:03)
[2022-01-02 10:54] VITALS: BP 147/71; PULSE 60
[2022-01-02] MEDS: Phenylephrine HCL 2.5% Oph SoL 2 ML BOTTLE 1 DROP EYE-RIGHT ×3 (10:54→11:06)
[2022-01-02] MEDS: Lactated Ringers 500 ML 50 ML IV (10:58)
--- NOTE | 2022-01-02 11:59 | P.PCNO_ITS ---
Ophthalmology Procedure Procedure Date of Service: 01/02/22 Ophthalmology Viscoelastic: Eagle Corado Dual Pack Pro Ophthalmology Lenses: TECMINDA [id number] (21.5) Procedure Notes: PREOPERATIVE DIAGNOSIS: Decreased visual acuity right eye secondary to cataract POSTOPERATIVE DIAGNOSIS: Same PROCEDURE: Right cataract extraction with intraocular lens insertion SURGEON: Fabrice Dooley M.D. ANESTHESIA: Topical/MAC ESTIMATED BLOOD LOSS: None COMPLICATIONS: Capular Rupture After obtaining informed consent, the patient was brought to the operating room suite and placed in the supine position. After adequate sedation per anesthesia, topical drops of Tetracaine were given to the right eye. The eye was then prepped and draped in the usual sterile fashion. The operating room microscope was then positioned over the operative eye and a lid speculum placed. A paracentesis was created. Viscoelastic was then instilled into the anterior chamber. A three plane incision was then created temporally, utilizing a 2.85 mm keratome. Capsulotomy forceps were then utilized to create a circular tear capsulotomy. Hydrodissection and hydrodelineation were carried out until adequate mobilization of the nucleus occurred. Phacoemulsification was then utilized to remove the dense central n ucleus followed by removal of the cortical material utilizing the automated aspiration irrigation unit. Capsular tear occured requiring an Anterior Vitrectomy.The PCIOL was placed into the Sulcus with antrior Capture of the lens optic. Miochol was instilled resulting in a small round pupil. The wouunds were checked without encountering vitreous. The residual Viscoelastic was then removed utilizing the vitrectomy unit.. The wound was checked and found to be watertight. The patient tolerated the procedure well and the lid speculum was removed. Intracameral injection of Vigamox 0.1 mL followed by a subtenon injection of Kenalog-40 0.2 mL were administered. The patient will be seen in the a.m.
[2022-01-02 12:42] VITALS: BP 139/63; PULSE 50; RESP 12; TEMP 36.4; O2SAT 100
== END 2022-01-02 12:56 | disposition home or self-care (01) ==
PROVIDERS: PCP Internal Medicine; Visit Provider Ophthalmology
PROC: (CPT 66985; principal; 2022-01-02 11:10)
DX: H25.11 Age-related nuclear cataract, right eye (principal); H59 Intraoperative and postprocedural complications and disorders of eye and adnexa, not elsewhere classified; H52.4 Presbyopia; Y65.8 Other specified misadventures during surgical and medical care; Y92.234 Operating room of hospital as the place of occurrence of the external cause; M35.00 Sjogren syndrome, unspecified; E78.00 Pure hypercholesterolemia, unspecified; G47.00 Insomnia, unspecified; J84.9 Interstitial pulmonary disease, unspecified; R53.83 Other fatigue; Z79.52 Long term (current) use of systemic steroids; Z79.82 Long term (current) use of aspirin; Z79.899 Other long term (current) drug therapy
CPT/HCPCS: 66984; J2250; J3010; J3300; V2632

== ENCOUNTER 2022-05-08 12:38 | Outpatient (REF) | payer MEDICARE, SELFPAY ==
--- NOTE | ~2022-05-08 | CT_ITS ---
EXAMINATION: CT CHEST WITHOUT CONTRAST CLINICAL INFORMATION: Interstitial lung disease COMPARISON: Previous chest CT most recent August 2020 TECHNIQUE: Multidetector volumetric CT imaging of the chest was done. Axial MIP volume rendering provided. Sagittal and coronal reformatted images were obtained. This CT examination was performed using dose optimization techniques as appropriate, variously including the following: *Automated exposure control *Adjustment of mA and/or kV according to patient size (this includes techniques or standardized protocols for targeted exams where dose is matched to indication/reason for exam; i.e. extremities or head) *Use of iterative reconstruction technique DLP: 224 mGy-cm FINDINGS: LUNGS: There is evidence of interstitial lung disease with increased central and peripheral interlobular septal thickening and groundglass attenuation. This is seen diffusely throughout the lungs but greatest at the lower lungs. There is some traction bronchiolectasis seen in both lower lobes. This does not appear appreciably changed from previous exams. No evidence of emphysema. No endobronchial or endotracheal lesion. No suspicious pulmonary nodule. MEDIASTINUM: No enlarged hilar or mediastinal lymph nodes. Normal heart size. No pericardial effusion. Normal caliber thoracic aorta. CORONARY ARTERY CALCIFICATION: Mild PLEURA: There is no pleural effusion. No pleural mass or thickening. AXILLA: No lymphadenopathy. UPPER ABDOMEN: Unremarkable. OSSEOUS STRUCTURES: Degenerative changes of the spine. CT/CT chest wo IV con IMPRESSION: Interstitial lung disease similar to previous exam. Fleischner guidelines were followed.
== END 2022-05-08 12:39 | disposition home or self-care (01) ==
LOC: HO.CT 12:38
PROVIDERS: PCP Internal Medicine; Visit Provider Hospitalist
DX: J84.9 Interstitial pulmonary disease, unspecified (principal)
CPT/HCPCS: 71250

== ENCOUNTER 2022-05-29 12:32 | Outpatient (REF) | payer MEDICARE, SELFPAY ==
[2022-05-29 13:57] LABS: MANUAL DIFF FLAG NO
[2022-05-29 14:04] LABS: Basophils Absolute Auto 0.1 X10*3/uL (0.0-0.2); Basophils Percent Auto 1.1 % (0-2); Eosinophils Absolute Auto 0.4 X10*3/uL (0.0-0.4); Eosinophils Percent Auto 8.1 % (0-4); Hematocrit 42.6 % (37.0-47.0); Hemoglobin 13.9 g/dl (12.0-16.0); Imm Gran Abs Auto 0.01 X10*3/uL (0.00-0.03); Imm Gran Pct Auto 0.2 % (0.0-0.4); Lymphocytes Absolute Auto 1.2 X10*3/uL (1.2-4.9); Lymphocytes Percent Auto 22.6 % (20-40); Mean Corpuscular HGB Conc 32.6 g/dl (31.0-35.0); Mean Corpuscular Hemoglobin 30.3 pg (27.0-33.0); Mean Corpuscular Volume 92.8 fL (80.0-98.0); Mean Platelet Volume 10.3 fL (9.4-12.3); Monocytes Absolute Auto 0.6 X10*3/uL (0.1-1.2); Monocytes Percent Auto 11.4 % (2-11); Neutrophils Absolute Auto 3.1 x10*3/uL (2.0-8.3); Neutrophils Percent Auto 56.6 % (45-73); Platelet Count 236 X10*3/uL (160-400); Red Blood Count 4.59 X10*6/uL (4.20-5.50); Red Cell Distribution Width 13.2 % (11.0-16.0); White Blood Count 5.5 X10*3/uL (4.8-10.8)
[2022-05-29 15:12] LABS: Alanine Aminotransferase 16 U/L (0-31); Albumin Level 3.9 g/dL (3.5-5.0); Alkaline Phosphatase 47 U/L (39-117); Anion Gap 11 (12-20); Aspartate Amino Transferase 21 U/L (5-31); Bilirubin Total 0.7 mg/dL (0.0-1.0); Blood Urea Nitrogen 15 mg/dL (9-16); Calcium 9.2 mg/dL (8.4-10.2); Carbon Dioxide 30 mmol/L (22-29); Chloride 106 mmol/L (96-108); Cholesterol 231 mg/dL; Estimated Glomerular Filt Rate > 60; Glucose Fasting 97 mg/dL (60-99); HDL Cholesterol 59 mg/dL; LDL Cholesterol Calculated 152 mg/dl; Potassium 4.7 mmol/L (3.3-5.1); Sodium 142 mmol/L (135-145); Total Protein 7.4 g/dL (6.5-8.0); Triglycerides 102 mg/dL; Vitamin D 25-OH Total 40.1 ng/mL (>30)
== END 2022-05-29 12:33 | disposition home or self-care (01) ==
LOC: HO.10HDL 12:32
PROVIDERS: Visit Provider Internal Medicine
DX: E78.00 Pure hypercholesterolemia, unspecified (principal); N18.9 Chronic kidney disease, unspecified; M35.00 Sjogren syndrome, unspecified
CPT/HCPCS: 36415; 80053; 80061; 82306; 85025

== ENCOUNTER → 2022-06-02 12:50 | Outpatient (BNVA) | payer MEDICARE, SELFPAY | PROVIDERS: PCP Internal Medicine; Visit Provider Hospitalist | DX: M35.02 Sjogren syndrome with lung involvement (principal); J84.9 Interstitial pulmonary disease, unspecified; F51.01 Primary insomnia; E66.01 Morbid (severe) obesity due to excess calories; Z68.41 Body mass index [BMI] 40.0-44.9, adult; Z79.52 Long term (current) use of systemic steroids | CPT/HCPCS: 99212 ==

== ENCOUNTER 2022-11-21 11:22 | Outpatient (REF) | payer MEDICARE, SELFPAY ==
[2022-11-21 13:41] LABS: Alanine Aminotransferase 15 U/L (0-31); Albumin Level 3.9 g/dL (3.5-5.0); Alkaline Phosphatase 47 U/L (39-117); Anion Gap 11 (12-20); Aspartate Amino Transferase 19 U/L (5-31); Bilirubin Total 0.9 mg/dL (0.0-1.0); Blood Urea Nitrogen 14 mg/dL (9-16); Calcium 9.4 mg/dL (8.4-10.2); Carbon Dioxide 29 mmol/L (22-29); Chloride 104 mmol/L (96-108); Estimated Glomerular Filt Rate 55; Glucose Random 100 mg/dL (60-115); Potassium 4.4 mmol/L (3.3-5.1); Sodium 140 mmol/L (135-145); Total Protein 7.8 g/dL (6.5-8.0)
== END 2022-11-21 11:23 | disposition home or self-care (01) ==
LOC: HO.10HDL 11:22
PROVIDERS: Visit Provider Internal Medicine
DX: E78.00 Pure hypercholesterolemia, unspecified (principal)
CPT/HCPCS: 36415; 80053

== ENCOUNTER 2022-12-01 12:25 | Outpatient (REF) | payer MEDICARE, SELFPAY ==
[2022-12-01 14:12] LABS: Alanine Aminotransferase 12 U/L (0-31); Albumin Level 3.8 g/dL (3.5-5.0); Alkaline Phosphatase 48 U/L (39-117); Anion Gap 14 (12-20); Aspartate Amino Transferase 18 U/L (5-31); Bilirubin Total 0.7 mg/dL (0.0-1.0); Blood Urea Nitrogen 11 mg/dL (9-16); Calcium 9.5 mg/dL (8.4-10.2); Carbon Dioxide 28 mmol/L (22-29); Chloride 103 mmol/L (96-108); Cholesterol 202 mg/dL; Estimated Glomerular Filt Rate > 60; Glucose Fasting 99 mg/dL (60-99); HDL Cholesterol 48 mg/dL; LDL Cholesterol Calculated 130 mg/dl; Potassium 4.8 mmol/L (3.3-5.1); Sodium 140 mmol/L (135-145); Total Protein 7.7 g/dL (6.5-8.0); Triglycerides 120 mg/dL
== END 2022-12-01 12:26 | disposition home or self-care (01) ==
LOC: HO.10HDL 12:25
PROVIDERS: Visit Provider Internal Medicine
DX: I12.9 Hypertensive chronic kidney disease with stage 1 through stage 4 chronic kidney disease, or unspecified chronic kidney disease (principal); N18.9 Chronic kidney disease, unspecified; E78.00 Pure hypercholesterolemia, unspecified
CPT/HCPCS: 36415; 80053; 80061

== ENCOUNTER → 2022-12-05 10:30 | Outpatient (BNVA) | payer MEDICARE, SELFPAY | PROVIDERS: PCP Internal Medicine; Visit Provider Internal Medicine Rheumatology | DX: M35.02 Sjogren syndrome with lung involvement (principal); R76.8 Other specified abnormal immunological findings in serum; J84.9 Interstitial pulmonary disease, unspecified; Z79.52 Long term (current) use of systemic steroids | CPT/HCPCS: 99212 ==

== ENCOUNTER → 2022-12-15 13:08 | Outpatient (BNVA) | payer MEDICARE, SELFPAY | PROVIDERS: PCP Internal Medicine; Visit Provider Hospitalist | DX: M35.02 Sjogren syndrome with lung involvement (principal); J84.9 Interstitial pulmonary disease, unspecified; E66.01 Morbid (severe) obesity due to excess calories; F51.01 Primary insomnia; Z79.52 Long term (current) use of systemic steroids; Z68.41 Body mass index [BMI] 40.0-44.9, adult | CPT/HCPCS: 99212 ==

== ENCOUNTER 2022-12-21 10:05 | Outpatient (REF) | payer MEDICARE, SELFPAY ==
[2022-12-23 06:03] LABS: SARS-COV-2 IgG Spike, Semi-Qnt >150.00 index (<1.00)
[2022-12-25 16:39] LABS: SARS COV2 IgG Negative (Negative)
== END 2022-12-21 10:06 | disposition home or self-care (01) ==
LOC: HO.HMGCLDS 10:05
PROVIDERS: PCP Internal Medicine; Visit Provider Hospitalist
DX: M35.02 Sjogren syndrome with lung involvement (principal)
CPT/HCPCS: 36415; 86769

== ENCOUNTER 2022-12-27 12:41 | Outpatient (REF) | payer MEDICARE, SELFPAY | END 2022-12-27 12:42 | disposition home or self-care (01) | LOC: HO.HMGCLDS 12:41 | PROVIDERS: PCP Internal Medicine; Visit Provider Hospitalist | DX: J84.9 Interstitial pulmonary disease, unspecified (principal) | CPT/HCPCS: 87070; 87205 ==

== ENCOUNTER 2023-05-07 10:23 | Outpatient (REF) | payer MEDICARE, SELFPAY ==
[2023-05-07 10:35] VITALS: BP 168/79; PULSE 81; RESP 18; TEMP 36.2; O2SAT 96
[2023-05-07 10:36] VITALS: BMI 43.3
== END 2023-05-07 10:24 | disposition home or self-care (01) ==
LOC: HO.MS 10:23
PROVIDERS: Visit Provider Ophthalmology
PROC: (CPT 66821; principal; 2023-05-07 13:00)
DX: H26.492 Other secondary cataract, left eye (principal)
CPT/HCPCS: 66821

== ENCOUNTER 2023-05-22 12:47 | Outpatient (REF) | payer MEDICARE, SELFPAY ==
--- NOTE | ~2023-05-22 | CT_ITS ---
EXAMINATION: CT CHEST WITHOUT CONTRAST CLINICAL INFORMATION: Interstitial lung disease COMPARISON: 05/08/2022 TECHNIQUE: Multidetector volumetric CT imaging of the chest was done. Axial MIP volume rendering provided. Sagittal and coronal reformatted images were obtained. This CT examination was performed using dose optimization techniques as appropriate, variously including the following: *Automated exposure control *Adjustment of mA and/or kV according to patient size (this includes techniques or standardized protocols for targeted exams where dose is matched to indication/reason for exam; i.e. 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 There is peribronchial thickening. No lung nodules or consolidation seen. Small bronchiectasis seen in the left lower lobe and right lower lobe. Central airways are patent. MEDIASTINUM: Thyroid gland is unremarkable. There is no mediastinal or hilar lymphadenopathy. Thoracic aorta is nondilated. Pulmonary arteries are not dilated. CORONARY ARTERY CALCIFICATION: Mild coronary artery calcifications present. PLEURA: There is no pleural effusion. No pleural mass or thickening. AXILLA: No lymphadenopathy. UPPER ABDOMEN: Unremarkable. OSSEOUS STRUCTURES: There are multilevel degenerative changes. No compression deformities seen. CT/CT chest wo IV con IMPRESSION: Changes of centrilobular emphysema and chronic interstitial lung disease. No evidence of honeycombing. Fleischner guidelines were followed.
== END 2023-05-22 12:48 | disposition home or self-care (01) ==
LOC: HO.CT 12:47
PROVIDERS: PCP Internal Medicine; Visit Provider Hospitalist
DX: J84.9 Interstitial pulmonary disease, unspecified (principal)
CPT/HCPCS: 71250

== ENCOUNTER 2023-06-05 13:28 | Outpatient (AMB) | payer MEDICARE, SELFPAY ==
[2023-06-05 13:38] VITALS: PULSE 90; O2SAT 94; BMI 43.3
--- NOTE | 2023-06-05 13:38 | MHC.OFFVIS ---
Intake Vital Signs 06/05/23 13:38 Height 5 ft 5 in Weight 260 lb BMI 43.3 Pulse 90 Pulse Source Pulse Oximeter Pulse Oximetry (%) 94 Oxygen Delivery Method Room Air Intake Visit Reasons: Never scheduled during my last visit. 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 She has been relatively stable on the dose of prednisone of 5 mg alternating with 7.5. She became sick recently with a bowl lower respiratory infection cough bronchitis and was treated with amoxicillin with relatively good effect. Although, she continued coughing. After that she had a viral syndrome causing more upper respiratory symptoms. At this point she is better. She did have a recent CT scan of the chest that we personally reviewed. It demonstrated stable interstitial changes specially at the bases which she has the predominant of the issue. She also had a chest x-ray that we also looked at a compared to 2017 demonstrating some slight interval increase in the opacity in the right base, it the underlying respiratory infection which she took amoxicillin. 12/15/2022 the patient is here for pulmonary follow-up visit. The patient overall is doing about the same. She continues on the prednisone. She did follow-up with Rheumatology. She was recommended to continue the prednisone. The Plaquenil was not started. I did recommend that if she felt like she needed additional prednisone therapy then I would recommend she can start the hydrochloroquine at that point. We are monitoring closely her imaging studies and her PFTs. The patient overall is doing about the same. She does complaint of this productive cough. The mucus tends to be moderate in consistency. The color since to be clear. Denies any hemoptysis. Will try to get a sputum culture. in addition to that her last CT scan was back in the fall of 2022. Will plan to repeat the CT scan prior to our next meeting. If there is any worsening of the interstitial lung disease that will have to further address her medical therapy. If she has any worsening symptoms prior to the next visit she should call for an earlier appointment. Otherwise will follow-up then. 06/05/2023 the patient is here for a pulmonary follow-up visit. The patient overall has been doing about the same. Still having episodes of cough intermittently in addition to dyspnea on exertion. Mild in severity. She continues on the prednisone 4 mg daily. The patient did have a recent CT scan of the chest it appears to show stable interstitial lung disease. Although moderate severity. We did talk about considering antifibrotic agents such as Ofev. She also complains of some difficulty swallowing. She sometimes also has cough related to it. She may have a promotility issue. If the patient continues to have symptoms we can try her on azithromycin 3 times a week to help her with the inflammatory changes and also the promotility issues. Although, right now she is doing well so she does need to start any that additional therapies. Will plan to follow-up in 6 months. She has reluctant to do a PFTs and she had a hard time during the last time. Therefore will readdress that issue in 6 months. [facility] Medical History (Updated 06/05/23 @ 19:00 by Nael Read MD) Osteoarthritis COVID-19 vaccine series completed COPD (chronic obstructive pulmonary disease) Insomnia Interstitial lung disease Dyspnea Obesity Sjogren's syndrome with lung involvement Surgical History (Updated 12/05/22 @ 10:41 by CUAUHTEMOC Rivera) Hx of tubal ligation History of total bilateral knee replacement History of bilateral total hip arthroplasty H/O colonoscopy Family History Father Lung cancer Mother Alzheimer's disease Social History (Updated 12/05/22 @ 10:41 by CUAUHTEMOC Rivera) Household Members: Spouse Are you a primary in home caregiver to a significant other at home: No Do you presently have visiting nurse or other home services: No Alcohol intake: never Patient Tobacco Use Status: Never used Tobacco Current occupational status: unemployed Review of Systems Const Denies night sweats and Reports weight gain Eyes Reports dry eyes ENT Denies change in voice, Reports dry mouth, Denies lip swelling, Denies mouth pain, Reports nasal congestion, Reports nasal discharge and Denies tongue swelling Card Denies chest pain and Reports dyspnea on exertion Resp Reports cough and Reports dyspnea on exertion GI Denies abdominal pain Musc Denies no additional complaints Neuro Denies Neuro-related abnormal movements Psych Denies no additional complaints Rodriguez/Lymph Denies easy bleeding and Denies lymphadenopathy Aller/Immun Denies lip swelling and Denies tongue swelling Physical Exam Vital Signs: Last Vital Signs Pulse 90 06/05/23 13:38 Pulse Ox 94 06/05/23 13:38 Oxygen Delivery Method Room Air 06/05/23 13:38 BMI result Body Mass Index 43.3 Const General: alert Neck Neck: Yes normal visual inspection, Yes full ROM and Yes no lymphadenopathy Chest Chest palpation & inspection: normal inspection of the chest Resp Auscultation: rales bilateral at the base and in the lower lung ram and diminished lung sounds Cardio Rate: regular rate Rhythm: regular rhythm Heart sounds: S1 normal heart sound present and S2 normal heart sound present GI Palpation (GI): Soft to palpation and nontender Auscultation: normal bowel sounds Skin General skin exam: rashes and/or lesions noted Assessment & Plan Assessment & Plan (1) Sjogren's syndrome with lung involvement: Comment: SSA, SSB, rheumatoid factor, FARIBA positive. CCP antibody, anti ANNALISA, anti double-stranded DNA, Scl 70 antibody negative. ILD treated with prednisone. 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: Code(s): Z79.52 - longterm (current) use of systemic steroids (3) Interstitial lung disease: Comment: some progression noted, consider OFEV Code(s): J84.9 - Interstitial pulmonary disease, unspecified (4) Obesity: Code(s): E66.9 - Obesity, unspecified Qualifiers: Body mass index: BMI 40.0-44.9 Obesity classification: adult class 3 (BMI >= 40) Obesity type: due to excess calories Serious obesity comorbidity presence: unspecified whether serious comorbidity present Qualified Code(s): E66.01 - Morbid (severe) obesity due to excess calories; Z68.41 - Body mass index [BMI]40.0-44.9, adult (5) Insomnia: Code(s): G47.00 - Insomnia, unspecified Qualifiers: Insomnia type: primary Qualified Code(s): F51.01 - Primary insomnia Plan Continue current dose of prednisone with slow taper 2.5/4 Consider OFEV Weight management Sleep aid PFTs-pt declined ? spirometry next time F/U 6 months Coding Level of Care Code Est Pt Level 4 (07459) Diagnoses Sjogren's syndrome with lung involvement M35.02 longterm systemic steroid user Z79.52 Interstitial lung disease J84.9 Class 3 severe obesity due to excess calories with body mass index (BMI) of 40.0 to 44.9 in adult, unspecified whether serious comorbidity present E66.01; Z68.41 Body mass index: BMI 40.0-44.9 Obesity classification: adult class 3 (BMI >= 40) Obesity type: due to excess calories Serious obesity comorbidity presence: unspecified whether serious comorbidity present Primary insomnia F51.01 Insomnia type: primary Time Spent (min) 18
== END 2023-06-05 14:05 | disposition home or self-care (01) ==
PROVIDERS: PCP Internal Medicine; Visit Provider Hospitalist
DX: M35.02 Sjogren syndrome with lung involvement (principal); Z79.52 Long term (current) use of systemic steroids; J84.9 Interstitial pulmonary disease, unspecified; E66.01 Morbid (severe) obesity due to excess calories; Z68.41 Body mass index [BMI] 40.0-44.9, adult; F51.01 Primary insomnia
CPT/HCPCS: 99214

== ENCOUNTER → 2023-06-05 13:28 | Outpatient (BNVA) | payer MEDICARE, SELFPAY | PROVIDERS: PCP Internal Medicine; Visit Provider Hospitalist | DX: M35.02 Sjogren syndrome with lung involvement (principal); J84.9 Interstitial pulmonary disease, unspecified; F51.01 Primary insomnia; E66.01 Morbid (severe) obesity due to excess calories; Z79.52 Long term (current) use of systemic steroids; Z68.41 Body mass index [BMI] 40.0-44.9, adult | CPT/HCPCS: 99212 ==

== ENCOUNTER 2023-10-04 11:47 | Outpatient (REF) | payer MEDICARE, SELFPAY ==
[2023-10-04 13:09] LABS: MANUAL DIFF FLAG NO
[2023-10-04 13:28] LABS: Basophils Percent Auto 0.7 % (0-2); Eosinophils Absolute Auto 0.5 X10*3/uL (0.0-0.4); Eosinophils Percent Auto 8.2 % (0-4); Hematocrit 41.8 % (37.0-47.0); Hemoglobin 14.1 g/dl (12.0-16.0); Imm Gran Abs Auto 0.01 X10*3/uL (0.00-0.03); Imm Gran Pct Auto 0.2 % (0.0-0.4); Lymphocytes Absolute Auto 1.3 X10*3/uL (1.2-4.9); Lymphocytes Percent Auto 24.5 % (20-40); Mean Corpuscular HGB Conc 33.7 g/dl (31.0-35.0); Mean Corpuscular Hemoglobin 30.4 pg (27.0-33.0); Mean Corpuscular Volume 90.1 fL (80.0-98.0); Mean Platelet Volume 10.5 fL (9.4-12.3); Monocytes Absolute Auto 0.5 X10*3/uL (0.1-1.2); Monocytes Percent Auto 9.7 % (2-11); Neutrophils Absolute Auto 3.1 x10*3/uL (2.0-8.3); Neutrophils Percent Auto 56.7 % (45-73); Platelet Count 225 X10*3/uL (160-400); Red Blood Count 4.64 X10*6/uL (4.20-5.50); Red Cell Distribution Width 13.2 % (11.0-16.0); White Blood Count 5.5 X10*3/uL (4.8-10.8)
[2023-10-04 13:40] LABS: Alanine Aminotransferase 15 U/L (0-31); Albumin Level 3.6 g/dL (3.5-5.0); Alkaline Phosphatase 46 U/L (39-117); Anion Gap 10 (12-20); Aspartate Amino Transferase 19 U/L (5-31); Bilirubin Total 0.6 mg/dL (0.0-1.0); Blood Urea Nitrogen 11 mg/dL (9-16); Calcium 8.8 mg/dL (8.4-10.2); Carbon Dioxide 27 mmol/L (22-29); Chloride 108 mmol/L (96-108); Cholesterol 205 mg/dL (<200); Estimated Glomerular Filt Rate > 60; Glucose Random 97 mg/dL (60-115); HDL Cholesterol 50 mg/dL (>40); LDL Cholesterol Calculated 131 mg/dL (<100); Potassium 3.6 mmol/L (3.3-5.1); Sodium 141 mmol/L (135-145); Total Protein 7.5 g/dL (6.5-8.0); Triglycerides 120 mg/dL (<150)
== END 2023-10-04 11:48 | disposition home or self-care (01) ==
LOC: HO.HMGCLDS 11:47
PROVIDERS: PCP Internal Medicine; Visit Provider Internal Medicine
DX: E78.00 Pure hypercholesterolemia, unspecified (principal); R60.0 Localized edema
CPT/HCPCS: 36415; 80053; 80061; 85025

== ENCOUNTER 2023-12-18 13:08 | Outpatient (AMB) | payer MEDICARE, SELFPAY ==
[2023-12-18 13:14] VITALS: PULSE 89; O2SAT 96; BMI 42.9
--- NOTE | 2023-12-18 13:14 | A.OFFVIS_ITS ---
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 She has been relatively stable on the dose of prednisone of 5 mg alternating with 7.5. She became sick recently with a bowl lower respiratory infection cough bronchitis and was treated with amoxicillin with relatively good effect. Although, she continued coughing. After that she had a viral syndrome causing more upper respiratory symptoms. At this point she is better. She did have a recent CT scan of the chest that we personally reviewed. It demonstrated stable interstitial changes specially at the bases which she has the predominant of the issue. She also had a chest x-ray that we also looked at a compared to 2017 demonstrating some slight interval increase in the opacity in the right base, it the underlying respiratory infection which she took amoxicillin. 12/15/2022 the patient is here for pulmonary follow-up visit. The patient overall is doing about the same. She continues on the prednisone. She did follow-up with Rheumatology. She was recommended to continue the prednisone. The Plaquenil was not started. I did recommend that if she felt like she needed additional prednisone therapy then I would recommend she can start the hydrochloroquine at that point. We are monitoring closely her imaging studies and her PFTs. The patient overall is doing about the same. She does complaint of this productive cough. The mucus tends to be moderate in consistency. The color since to be clear. Denies any hemoptysis. Will try to get a sputum culture. in addition to that her last CT scan was back in the fall of 2022. Will plan to repeat the CT scan prior to our next meeting. If there is any worsening of the interstitial lung disease that will have to further address her medical therapy. If she has any worsening symptoms prior to the next visit she should call for an earlier appointment. Otherwise will follow-up then. 06/05/2023 the patient is here for a pulmonary follow-up visit. The patient overall has been doing about the same. Still having episodes of cough intermittently in addition to dyspnea on exertion. Mild in severity. She continues on the prednisone 4 mg daily. The patient did have a recent CT scan o f the chest it appears to show stable interstitial lung disease. Although moderate severity. We did talk about considering antifibrotic agents such as Ofev. She also complains of some difficulty swallowing. She sometimes also has cough related to it. She may have a promotility issue. If the patient continues to have symptoms we can try her on azithromycin 3 times a week to help her with the inflammatory changes and also the promotility issues. Although, right now she is doing well so she does need to start any that additional therapies. Will plan to follow-up in 6 months. She has reluctant to do a PFTs and she had a hard time during the last time. Therefore will readdress that issue in 6 months. 12/18/2023 the patient is here for a pulmonary follow-up visit. She has doing about the same. She is going to work on her weight. She is also trying to get more active. She has been pretty sedentary. She continues on the prednisone she has been on 4 mg daily. She will try to decrease it to 4/3 mg alternating days. Always trying to aim for the lowest most effective dose. Her last CT scan was back in April 2023 demonstrating the interstitial lung disease. Will go ahead and plan to repeat her CT scan sometime early spring, unless her symptoms are getting worse. The patient does have some daytime drowsiness. We did talk about considering repeating sleep study but she would like to hold off at this time. She continues to take the prednisone with good effect. [facility] Medical History (Updated 06/05/23 @ 19:00 by Nael Read MD) Osteoarthritis COVID-19 vaccine series completed COPD (chronic obstructive pulmonary disease) Insomnia Interstitial lung disease Dyspnea Obesity Sjogren's syndrome with lung involvement Surgical History (Updated 12/05/22 @ 10:41 by CUAUHTEMOC Rivera) Hx of tubal ligation History of total bilateral knee replacement History of bilateral total hip arthroplasty H/O colonoscopy Family History Father Lung cancer Mother Alzheimer's disease Social History (Updated 12/05/22 @ 10:41 by Carlita López Annamaria, CCMA) Household Members: Spouse Are you a primary home care nurse to a significant other at home: No Do you presently have visiting nurse or other home services: No Alcohol intake: never Patient Tobacco Use Status: Never used Tobacco Current occupational status: unemployed Review of Systems Const Denies night sweats and Reports weight gain Eyes Reports dry eyes ENT Denies change in voice, Reports dry mouth, Denies lip swelling, Denies mouth pain, Reports nasal congestion, Reports nasal discharge and Denies tongue swelling Card Denies chest pain and Reports dyspnea on exertion Resp Reports cough and Reports dyspnea on exertion GI Denies abdominal pain Musc Denies no additional complaints Neuro Denies Neuro-related abnormal movements Psych Denies no additional complaints Rodriguez/Lymph Denies easy bleeding and Denies lymphadenopathy Aller/Immun Denies lip swelling and Denies tongue swelling Physical Exam Vital Signs: Last Vital Signs Pulse 89 12/18/23 13:14 Pulse Ox 96 12/18/23 13:14 Oxygen Delivery Method Room Air 12/18/23 13:14 BMI result Body Mass Index 42.9 Const General: alert Neck Neck: Yes normal visual inspection, Yes full ROM and Yes no lymphadenopathy Chest Chest palpation & inspection: normal inspection of the chest Resp Auscultation: rales bilateral at the base and in the lower lung ram and diminished lung sounds Cardio Rate: regular rate Rhythm: regular rhythm Heart sounds: S1 normal heart sound present and S2 normal heart sound present GI Palpation (GI): Soft to palpation and nontender Auscultation: normal bowel sounds Skin General skin exam: rashes and/or lesions noted Assessment & Plan Assessment & Plan (1) Sjogren's syndrome with lung involvement: Comment: SSA, SSB, rheumatoid factor, FARIBA positive. CCP antibody, anti ANNALISA, anti double- stranded DNA, Scl 70 antibody negative. ILD treated with prednisone. 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: Code(s): Z79.52 - penitentiary (current) use of systemic steroids Category: Medical (3) Interstitial lung disease: Comment: some progression noted, consider OFEV Code(s): J84.9 - Interstitial pulmonary disease, unspecified Category: Medical (4) Obesity: Code(s): E66.9 - Obesity, unspecified Category: Medical Qualifiers: Body mass index: BMI 40.0-44.9 Obesity classification: adult class 3 (BMI >= 40) Obesity type: due to excess calories Serious obesity comorbidity presence: unspecified whether serious comorbidity present Qualified Code(s): E66.01 - Morbid (severe) obesity due to excess calories; Z68.41 - Body mass index [BMI]40.0-44.9, adult (5) Insomnia: Code(s): G47.00 - Insomnia, unspecified Category: Medical Qualifiers: Insomnia type: primary Qualified Code(s): F51.01 - Primary insomnia Plan Continue current dose of prednisone 4mg with slow taper weight management Sleep aid: Ambien as needed F/U 6-8 months Medications: Refilled zolpidem (Ambien) 10 mg PO BEDTIME 30 tabs 3RF 30 days Coding Level of Care Code Est Pt Level 4 (76644) Diagnoses Sjogren's syndrome with lung involvement M35.02 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
== END 2023-12-18 13:38 | disposition home or self-care (01) ==
PROVIDERS: PCP Internal Medicine; Visit Provider Hospitalist
DX: M35.02 Sjogren syndrome with lung involvement (principal); Z79.52 Long term (current) use of systemic steroids; J84.9 Interstitial pulmonary disease, unspecified; E66.01 Morbid (severe) obesity due to excess calories; Z68.41 Body mass index [BMI] 40.0-44.9, adult; F51.01 Primary insomnia
CPT/HCPCS: 99214

== ENCOUNTER → 2023-12-18 13:08 | Outpatient (BNVA) | payer MEDICARE, SELFPAY | PROVIDERS: PCP Internal Medicine; Visit Provider Hospitalist | DX: M35.02 Sjogren syndrome with lung involvement (principal); J84.9 Interstitial pulmonary disease, unspecified; F51.01 Primary insomnia; E66.01 Morbid (severe) obesity due to excess calories; Z68.41 Body mass index [BMI] 40.0-44.9, adult; Z79.52 Long term (current) use of systemic steroids | CPT/HCPCS: 99212 ==

== ENCOUNTER 2024-08-27 11:04 | Outpatient (REF) | payer MEDICARE, SELFPAY ==
[2024-08-27 13:16] LABS: MANUAL DIFF FLAG NO
[2024-08-27 13:20] LABS: Appearance Urine Turbid; Color Urine Yellow; Glucose Urine UA Negative (Negative); Leukocyte Esterase Urine Moderate (2+) (Negative); Nitrite Urine Negative (Negative); PH 5.5 (5.0-9.0); UMIC TRIGGER UA YES; Urine Blood Negative (Negative); Urine Ketones Negative (Negative); Urine Protein Negative (Neg-Trace)
[2024-08-27 13:27] LABS: Bacteria Urine None Seen (None Seen); Hyaline Casts Urine 0-2 /LPF (0-2); RBC Urine 0-2 /HPF (0-2); WBC Urine >50 /HPF (0-5)
[2024-08-27 13:35] LABS: Basophils Absolute Auto 0.1 X10*3/uL (0.0-0.2); Basophils Percent Auto 1.1 % (0-2); Eosinophils Absolute Auto 0.5 X10*3/uL (0.0-0.4); Eosinophils Percent Auto 8.6 % (0-4); Hematocrit 42.8 % (37.0-47.0); Imm Gran Abs Auto 0.01 X10*3/uL (0.00-0.03); Imm Gran Pct Auto 0.2 % (0.0-0.4); Lymphocytes Absolute Auto 1.5 X10*3/uL (1.2-4.9); Lymphocytes Percent Auto 28.7 % (20-40); Mean Corpuscular HGB Conc 32.7 g/dl (31.0-35.0); Mean Corpuscular Hemoglobin 30.2 pg (27.0-33.0); Mean Corpuscular Volume 92.4 fL (80.0-98.0); Mean Platelet Volume 10.4 fL (9.4-12.3); Monocytes Absolute Auto 0.5 X10*3/uL (0.1-1.2); Monocytes Percent Auto 8.9 % (2-11); Neutrophils Absolute Auto 2.8 x10*3/uL (2.0-8.3); Neutrophils Percent Auto 52.5 % (45-73); Platelet Count 220 X10*3/uL (160-400); Red Blood Count 4.63 X10*6/uL (4.20-5.50); Red Cell Distribution Width 13.2 % (11.0-16.0); White Blood Count 5.3 X10*3/uL (4.8-10.8)
[2024-08-27 13:51] LABS: Estimated Average Glucose 108 mg/dL; Hemoglobin A1c % 5.4 % (<6.0); Total Hemoglobin (HGBA1C) 3771.3889 umol/L
[2024-08-27 14:02] LABS: Alanine Aminotransferase 14 U/L (0-31); Albumin Level 3.7 g/dL (3.5-5.0); Alkaline Phosphatase 49 U/L (39-117); Anion Gap 8 (12-20); Aspartate Amino Transferase 24 U/L (5-31); Bilirubin Total 0.6 mg/dL (0.0-1.0); Blood Urea Nitrogen 13 mg/dL (9-16); Calcium 8.8 mg/dL (8.4-10.2); Carbon Dioxide 29 mmol/L (22-29); Chloride 108 mmol/L (96-108); Cholesterol 202 mg/dL (<200); Estimated Glomerular Filt Rate > 60; Glucose Fasting 98 mg/dL (60-99); HDL Cholesterol 49 mg/dL (>40); LDL Cholesterol Calculated 132 mg/dL (<100); Potassium 4.1 mmol/L (3.3-5.1); Sodium 141 mmol/L (135-145); Total Protein 7.7 g/dL (6.5-8.0); Triglycerides 107 mg/dL (<150)
[2024-08-27 14:36] LABS: Vitamin B12 320 pg/mL (200-900)
== END 2024-08-27 11:05 | disposition home or self-care (01) ==
LOC: HO.10HDL 11:04
PROVIDERS: Visit Provider Internal Medicine
DX: Z13.89 Encounter for screening for other disorder (principal)
CPT/HCPCS: 36415; 80053; 80061; 81001; 82306; 82607; 83036; 84443; 85025

== ENCOUNTER 2024-08-27 16:25 | Outpatient (REF) | payer MEDICARE, SELFPAY ==
--- NOTE | ~2024-08-27 | XR_ITS ---
EXAMINATION: XR CHEST 2 VIEWS HISTORY: J84.9 - Interstitial pulmonary disease, unspecified COMPARISON: Comparison is made with the prior examination dated 05/12/2019. FINDINGS: PA and lateral views of the chest are submitted. Again seen are chronic diffuse interstitial markings. The most prominent at the lung bases. There are no focal airspace opacities. There is no pleural effusion, pneumothorax, or pulmonary vascular congestion. The heart is normal in size. There is degenerative disc disease of the spine. XR/XR chest 2V IMPRESSION: Pulmonary fibrosis. No acute cardiopulmonary abnormality. Electronically signed by: Eliecer Olivera MD 08/29/2024 04:04 PM [facility] [place]
== END 2024-08-27 16:26 | disposition home or self-care (01) ==
LOC: HO.XRAY 16:25
PROVIDERS: PCP Internal Medicine; Visit Provider Hospitalist
DX: J84.9 Interstitial pulmonary disease, unspecified (principal); Z13.1 Encounter for screening for diabetes mellitus; Z13.6 Encounter for screening for cardiovascular disorders
CPT/HCPCS: 36415; 71046; 80053; 80061; 81001; 82306; 82607; 83036; 84443; 85025

== ENCOUNTER → 2024-08-27 16:29 | Outpatient (BNV) | payer MEDICARE, SELFPAY | PROVIDERS: PCP Internal Medicine; Visit Provider Radiology Diagnostic Radiology | DX: J84.10 Pulmonary fibrosis, unspecified (principal) | CPT/HCPCS: 71046 ==

== ENCOUNTER 2024-09-11 14:30 | Outpatient (AMB) | payer MEDICARE, SELFPAY ==
--- NOTE | 2024-09-11 14:31 | MHC.OFFVIS ---
Vital Signs 09/11/24 14:32 Height 5 ft 5 in Weight 265 lb 10.512 oz BMI 44.2 BP 128/80 Blood Pressure Location Lt brachial Position Sitting Pulse 83 Pulse Source Pulse Oximeter Pulse Oximetry (%) 95 Oxygen Delivery Method Room Air Intake Visit Reasons: ILD Allergies No Known Allergies Allergy (Verified 09/11/24 14:37) HPI Comments Details: The patient is a 79-year-old woman with a known history of Sjogren's in addition to interstitial lung disease. She has been relatively stable on the dose of prednisone of 5 mg alternating with 7.5. She became sick recently with a bowl lower respiratory infection cough bronchitis and was treated with amoxicillin with relatively good effect. Although, she continued coughing. After that she had a viral syndrome causing more upper respiratory symptoms. At this point she is better. She did have a recent CT scan of the chest that we personally reviewed. It demonstrated stable interstitial changes specially at the bases which she has the predominant of the issue. She also had a chest x-ray that we also looked at a compared to 2017 demonstrating some slight interval increase in the opacity in the right base, it the underlying respiratory infection which she took amoxicillin. 12/15/2022 the patient is here for pulmonary follow-up visit. The patient overall is doing about the same. She continues on the prednisone. She did follow-up with Rheumatology. She was recommended to continue the prednisone. The Plaquenil was not started. I did recommend that if she felt like she needed additional prednisone therapy then I would recommend she can start the hydrochloroquine at that point. We are monitoring closely her imaging studies and her PFTs. The patient overall is doing about the same. She does complaint of this productive cough. The mucus tends to be moderate in consistency. The color since to be clear. Denies any hemoptysis. Will try to get a sputum culture. in addition to that her last CT scan was back in the fall of 2022. Will plan to repeat the CT scan prior to our next meeting. If there is any worsening of the interstitial lung disease that will have to further address her medical therapy. If she has any worsening symptoms prior to the next visit she should call for an earlier appointment. Otherwise will follow-up then. 06/05/2023 the patient is here for a pulmonary follow-up visit. The patient overall has been doing about the same. Still having episodes of cough intermittently in addition to dyspnea on exertion. Mild in severity. She continues on the prednisone 4 mg daily. The patient did have a recent CT scan of the chest it appears to show stable interstitial lung disease. Although moderate severity. We did talk about considering antifibrotic agents such as Ofev. She also complains of some difficulty swallowing. She sometimes also has cough related to it. She may have a promotility issue. If the patient continues to have symptoms we can try her on azithromycin 3 times a week to help her with the inflammatory changes and also the promotility issues. Although, right now she is doing well so she does need to start any that additional therapies. Will plan to follow-up in 6 months. She has reluctant to do a PFTs and she had a hard time during the last time. Therefore will readdress that issue in 6 months. 12/18/2023 the patient is here for a pulmonary follow-up visit. She has doing about the same. She is going to work on her weight. She is also trying to get more active. She has been pretty sedentary. She continues on the prednisone she has been on 4 mg daily. She will try to decrease it to 4/3 mg alternating days. Always trying to aim for the lowest most effective dose. Her last CT scan was back in April 2023 demonstrating the interstitial lung disease. Will go ahead and plan to repeat her CT scan sometime early spring, unless her symptoms are getting worse. The patient does have some daytime drowsiness. We did talk about considering repeating sleep study but she would like to hold off at this time. She continues to take the prednisone with good effect. 09/11/2024 the patient is here for pulmonary follow-up visit. Overall she is doing okay. She is still using the prednisone 4 mg daily which keeps her stable. Whenever she tries to cut down or if she forgets she sometimes starts getting dryness of the mouth. As far as her breathing she has not seen any worsening of the symptoms. Still has some dyspnea on exertion with mild activity. In terms time she has intermittent cough which is nonproductive in nature. She did undergo a chest x-ray which I personally reviewed in 09/11/2024 and compared to an chest x-ray that she had back in 2019. Looks like some areas are slightly better specially the right base and some areas are about the same. Therefore I do not see any significant changes and she is otherwise stable. I did offer to do pulmonary function studies with the patient rather not do PFTs at this time. Therefore follow-up in 6 months and will decide if any additional imaging studies are warranted them. The patient seems to be pretty content with the dose of prednisone and she rather stay on that dose at this time. She is also using Ambien for sleep. The patient does take medication holidays to minimize the adverse effects. She denies any retrograde amnesia at this time. [facility] Medical History (Updated 09/11/24 @ 22:03 by Nael Read MD) Dysuria Osteoarthritis COVID-19 vaccine series completed COPD (chronic obstructive pulmonary disease) Insomnia Interstitial lung disease Dyspnea Obesity Sjogren's syndrome with lung involvement Surgical History (Updated 12/05/22 @ 10:41 by Carlita Yin [facility]) Hx of tubal ligation History of total bilateral knee replacement History of bilateral total hip arthroplasty H/O colonoscopy Family History Father Lung cancer Mother Alzheimer's disease Social History Household Members: Spouse Are you a primary continuum of care manager to a significant other at home: No Do you presently have visiting nurse or other home services: No Alcohol intake: never Patient Tobacco Use Status: Never used Tobacco Current occupational status: unemployed Review of Systems Const Denies night sweats and Reports weight gain Eyes Reports dry eyes ENT Denies change in voice, Reports dry mouth, Denies lip swelling, Denies mouth pain, Reports nasal congestion, Reports nasal discharge and Denies tongue swelling Card Denies chest pain and Reports dyspnea on exertion Resp Reports cough and Reports dyspnea on exertion GI Denies abdominal pain Musc Denies no additional complaints Neuro Denies Neuro-related abnormal movements Psych Denies no additional complaints Rodriguez/Lymph Denies easy bleeding and Denies lymphadenopathy Aller/Immun Denies lip swelling and Denies tongue swelling Physical Exam Vital Signs: Last Vital Signs Pulse 83 09/11/24 14:32 BP 128/80 09/11/24 14:32 Pulse Ox 95 09/11/24 14:32 Oxygen Delivery Method Room Air 09/11/24 14:32 BMI result Body Mass Index 44.2 Const General: alert Neck Neck: Yes normal visual inspection, Yes full ROM and Yes no lymphadenopathy Chest Chest palpation & inspection: normal inspection of the chest Resp Auscultation: rales bilateral at the base and in the lower lung ram and diminished lung sounds Cardio Rate: regular rate Rhythm: regular rhythm Heart sounds: S1 normal heart sound present and S2 normal heart sound present GI Palpation (GI): Soft to palpation and nontender Auscultation: normal bowel sounds Skin General skin exam: rashes and/or lesions noted Assessment & Plan Assessment & Plan (1) Dysuria: Code(s): R30.0 - Dysuria Category: Medical (2) Sjogren's syndrome with lung involvement: Comment: SSA, SSB, rheumatoid factor, FARIBA positive. CCP antibody, anti ANNALISA, anti double-stranded DNA, Scl 70 antibody negative. ILD treated with prednisone. 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: Code(s): Z79.52 - sheet metal helper (current) use of systemic steroids Category: Medical (4) Interstitial lung disease: Comment: consider OFEV Code(s): J84.9 - Interstitial pulmonary disease, unspecified Category: Medical (5) Obesity: Code(s): E66.9 - Obesity, unspecified Category: Medical Qualifiers: Body mass index: BMI 40.0-44.9 Obesity classification: adult class 3 (BMI >= 40) Obesity type: due to excess calories Serious obesity comorbidity presence: unspecified whether serious comorbidity present Qualified Code(s): E66.01 - Morbid (severe) obesity due to excess calories; Z68.41 - Body mass index [BMI]40.0-44.9, adult (6) Insomnia: Code(s): G47.00 - Insomnia, unspecified Category: Medical Qualifiers: Insomnia type: primary Qualified Code(s): F51.01 - Primary insomnia Plan Continue current dose of prednisone 4mg with slow taper weight management Sleep aid: Ambien as needed F/U 6-8 months Orders: Orders UA CC w/rflx Micro + Cult Today R30.0 - Dysuria Medications: Refilled zolpidem (Ambien) 10 mg PO BEDTIME 30 tabs 3RF 30 days Coding Level of Care Code Est Pt Level 4 (36634) Complex EM visit Add On G2211 Diagnoses Dysuria R30.0 Sjogren's syndrome with lung involvement M35.02 senior living systemic steroid user Z79.52 Interstitial lung disease J84.9 Class 3 severe obesity due to excess calories with body mass index (BMI) of 40.0 to 44.9 in adult, unspecified whether serious comorbidity present E66.01; Z68.41 Body mass index: BMI 40.0-44.9 Obesity classification: adult class 3 (BMI >= 40) Obesity type: due to excess calories Serious obesity comorbidity presence: unspecified whether serious comorbidity present Primary insomnia F51.01 Insomnia type: primary Time Spent (min) 16
[2024-09-11 14:32] VITALS: BP 128/80; PULSE 83; O2SAT 95; BMI 44.2
== END 2024-09-11 15:00 | disposition home or self-care (01) ==
LOC: HO.HPS 14:31
PROVIDERS: PCP Internal Medicine; Visit Provider Hospitalist
DX: R30.0 Dysuria (principal); M35.02 Sjogren syndrome with lung involvement; Z79.52 Long term (current) use of systemic steroids; J84.9 Interstitial pulmonary disease, unspecified; E66.01 Morbid (severe) obesity due to excess calories; Z68.41 Body mass index [BMI] 40.0-44.9, adult; F51.01 Primary insomnia
CPT/HCPCS: 99214; G2211

== ENCOUNTER → 2024-09-11 14:30 | Outpatient (BNVA) | payer MEDICARE, SELFPAY | PROVIDERS: PCP Internal Medicine; Visit Provider Hospitalist | DX: J84.9 Interstitial pulmonary disease, unspecified (principal); M35.02 Sjogren syndrome with lung involvement; R30.0 Dysuria; E66.01 Morbid (severe) obesity due to excess calories; F51.01 Primary insomnia; Z79.52 Long term (current) use of systemic steroids; Z68.41 Body mass index [BMI] 40.0-44.9, adult | CPT/HCPCS: 99212 ==

== ENCOUNTER 2024-10-29 14:57 | Outpatient (REF) | payer MEDICARE, SELFPAY ==
[2024-10-29 16:23] LABS: Appearance Urine Clear; Color Urine Dark Yellow; Glucose Urine UA Negative (Negative); Leukocyte Esterase Urine Moderate (2+) (Negative); Nitrite Urine Negative (Negative); PH 5.5 (5.0-9.0); Specific Gravity - Urine >= 1.030 (1.005-1.025); UMIC TRIGGER UACC YES; Urine Blood Negative (Negative); Urine Ketones Trace mg/dL (Negative); Urine Protein Trace mg/dL (Neg-Trace)
[2024-10-29 16:26] LABS: Bacteria Urine None Seen (None Seen); Hyaline Casts Urine 0-2 /LPF (0-2); RBC Urine 0-2 /HPF (0-2); UACC Culture Trigger YES; WBC Urine >50 /HPF (0-5)
== END 2024-10-29 14:58 | disposition home or self-care (01) ==
LOC: HO.HMGCLDS 14:57
PROVIDERS: PCP Internal Medicine; Visit Provider Hospitalist
DX: R30.0 Dysuria (principal)
CPT/HCPCS: 81001; 87086

== ENCOUNTER 2024-10-31 15:23 | Outpatient (AMB) | payer MEDICARE, SELFPAY ==
[2024-10-31 10:51] VITALS: BP 128/80; TEMP 36.3; O2SAT 96; BMI 44.1
--- NOTE | 2024-10-31 10:51 | MHC.PC.OV ---
Vital Signs 10/31/24 10:51 Height 5 ft 5 in Weight 265 lb BMI 44.1 BP 128/80 Blood Pressure Location Lt brachial Position Sitting Temp 97.4 F Temp Source Axillary Pulse Oximetry (%) 96 Oxygen Delivery Method Room Air Oxygen Flow Rate 75 Intake Visit Reasons: Routine Chemical Recovery Operator Required: No Accompanied by: Self / Same As Patient Allergies No Known Allergies Allergy (Verified 10/31/24 10:52) Tobacco use date assessed: 10/31/24 Fall risk assessment: No Falls in past year Last assessed Fall Risk: 10/31/24 Dental Screening Dental Screen Date: 10/31/24 Did you have a dental visit in the last 12 months?: Yes Did you have a dental problem in the last 6 months where you did not have access to dental care?: No HPI HPI Comments History of Present Illness Details The patient is a 79-year-old woman with a known history of Sjogren's, ILD, hyperlipidemia, CKD presenting for follow up Insomnia is treated with zolpidem Follows with [facility] pulmonary, Dr Read. MSK: History of bilateral hip replacements, bilateral knee replacement Was seeing dermatology,no longer regularly following Mammo: 2020. declines further Colonoscopy 2015-Dr Quintero 5 years. Declines repeat ROS CONSTITUTIONAL: Denies weight loss, fever and chills. HEENT: Denies changes in vision and hearing. RESPIRATORY: Denies SOB and cough. CV: Denies palpitations and CP GI: Denies abdominal pain, nausea, vomiting and diarrhea. : Denies dysuria and urinary frequency. MSK: Denies new myalgia and joint pain. SKIN: Denies rash and pruritus. NEUROLOGICAL: Denies headache PSYCHIATRIC: Denies recent changes in mood. PHYSICAL EXAM: GENERAL: Alert and oriented x 3. NAD EYES: EOMI. Anicteric. HENT: Moist mucous membranes. No scleral icterus. No cervical lymphadenopathy. LUNGS: Clear to auscultation bilaterally. CARDIOVASCULAR: Regular rate and rhythm. No murmur. No JVD. ABDOMEN: Soft, non-tender +bs EXTREMITIES: No edema. Non-tender. SKIN: No rashes or lesions. Warm. NEUROLOGIC: No focal neurological deficits. CN II-XII grossly intact PSYCHIATRIC: Cooperative. Appropriate mood and affect [facility] Medical History (Updated 11/02/24 @ 13:57 by Kristi Interiano MD) Dysuria Osteoarthritis COVID-19 vaccine series completed COPD (chronic obstructive pulmonary disease) Insomnia Interstitial lung disease Dyspnea Obesity Sjogren's syndrome with lung involvement Surgical History Hx of tubal ligation History of total bilateral knee replacement History of bilateral total hip arthroplasty H/O colonoscopy (~05/09/16) Family History Father Lung cancer Mother Alzheimer's disease Social History Household Members: Spouse Housing: House Are you a primary in home caregiver to a significant other at home: No Do you presently have visiting nurse or other home services: No Alcohol intake: never Patient Tobacco Use Status: Never used Tobacco e-Cigarette/Vaping Use: Never Used service: No Current occupational status: unemployed Cognitive needs: No Hearing needs: No Vision needs: Yes (reading glasses) Questionnaire PHQ-9 Over the last 2 weeks, how often have you been bothered by any of the following problems? 1. Little interest or pleasure in doing things: not at all 2. Feeling down, depressed, or hopeless: not at all 3. Trouble falling or staying asleep, or sleeping too much: not at all 4. Feeling tired or having little energy: not at all 5. Poor appetite or overeating: not at all 6. Feeling bad about yourself - or that you are a failure or have let yourself or your family down: not at all 7. Trouble concentrating on things, such as reading the newspaper or watching television: not at all 8. Moving or speaking so slowly that other people could have noticed. Or the opposite - being so fidgety or restless that you have been moving around a lot more than usual: not at all 9. Thoughts that you would be better off or of hurting yourself in some way: not at all Total score: 0 Depression Screening Interpretation: Negative Depression Screening Done: Yes 59284 - PHQ-9 Billing: Yes Source: Developed by Drs. Eliecer Benites, Debra Flower, Jose Martin Perez and colleagues, with an educational ginny from [employer]. Thrive Questionnaire Date Thrive assessed: 10/31/24 I am a: Patient Within the past 12 months, did the food you bought not last and you didn't have the money to get more?: Never true Within the past 12 months, did you worry whether your food would run out before you got money to buy more?: Never true Do you have trouble paying for medicines?: No Do you have trouble getting transportation to medical appointments?: No Do you have trouble paying your heating and electricity bill?: No Do you have trouble taking care of your child, family member or friend?: No Do you have trouble with day-to-day activities such as bathing, preparing meals, shopping, managing finances, etc.?: No Are you currently unemployed and looking for a job?: No Are you interested in more education?: No THRIVE Score: 0 AUDIT C Alcohol Use Questionnaire (AUDIT-C) 1. How often do you have a drink containing alcohol?: Never 3. How often do you have six or more drinks on one occasion?: Never Total Score: 0 ELIDA-7 AMB Questionnaire ELIDA-7 Date ELIDA - 7 assessed: 10/31/24 Feeling nervous, anxious, or on edge: 0 = Not at all Not being able to stop or control worryin = Not at all Worrying too much about different things: 0 = Not at all Trouble relaxin = Not at all Being so restless that it is hard to sit still: 0 = Not at all Becoming easily annoyed or irritable: 0 = Not at all Feeling afraid as if something awful might happen: 0 = Not at all Total ELIDA-7 score (0-4 normal; 5-9 mild; 10-14 moderate; 15-21 severe): 0 Source: Developed by Drs. Eliecer Benites, Debra Flower, Jose Martin Perez and colleagues, with an educational ginny from [employer]. Physical exam (Primary Care) Vital Signs: Last Vital Signs Temp 97.4 F 10/31/24 10:51 BP 128/80 10/31/24 10:51 Pulse Ox 96 10/31/24 10:51 Oxygen Delivery Method Room Air 10/31/24 10:51 Oxygen Flow Rate 75 10/31/24 10:51 BMI result Body Mass Index 44.1 Tobacco/Smoking Status: Tobacco use Status Tobacco use date assessed 10/31/24 10/31/24 10:53 Patient Tobacco Use Status Never used Tobacco 10/31/24 10:53 Tobacco use type 12/15/22 13:08 e-Cigarette/Vaping Use Never Used 10/31/24 10:53 PHQ-9: PHQ-9 Score PHQ-9: Total score 0 10/31/24 16:41 Depression Screening Interpretation: Negative Thrive Assessment: Date of Thrive Assessment Date Thrive assessed 10/31/24 10/31/24 10:53 Coding Level of Care Code New Pt Level 4 (40633) Complex EM visit Add On G2211 Diagnoses Primary insomnia F51.01 Insomnia type: primary Sjogren's syndrome with lung involvement M35.02 Fatigue, unspecified type R53.83 Fatigue type: unspecified Additional Codes PHQ-9 - 12342 - PHQ-9 Billing: Yes ([id number]) Assessment & Plan Assessment & Plan (1) Insomnia: Code(s): G47.00 - Insomnia, unspecified Category: Medical Qualifiers: Insomnia type: primary Qualified Code(s): F51.01 - Primary insomnia (2) Sjogren's syndrome with lung involvement: Comment: SSA, SSB, rheumatoid factor, FARIBA positive. CCP antibody, anti ANNALISA, anti double-stranded DNA, Scl 70 antibody negative. ILD treated with prednisone. Code(s): M35.02 - Sjogren syndrome with lung involvement Category: Medical (3) Fatigue: Code(s): R53.83 - Other fatigue Category: Medical Qualifiers: Fatigue type: unspecified Qualified Code(s): R53.83 - Other fatigue Plan 79 y/o to establish care Past medical surgical social reviewed COPD/ILD increased sputum, sinus congestion. no fevers or shortness of breath. zpack sent.follow up prn Abnormal TFTs fatigue-recheck TSH Orders: Orders MM screening mammo BI 10/31/24 Z12.31 - Encounter for screening mammogram for malignant neoplasm of breast Sputum Cult + Gram stain 10/31/24 R05.9 - Cough, unspecified TSH reflex Free T4 10/31/24 R53.83 - Other fatigue, R94.6 - Abnormal results of thyroid function studies Thyroid Peroxidase Antibodies 10/31/24 R53.83 - Other fatigue, R94.6 - Abnormal results of thyroid function studies Medications: New azithromycin For 250 mg dose pack: take 500 mg today (day 1), then 250 mg for 4 days (days 2-5) PO 6 tabs 0RF
== END 2024-10-31 16:58 | disposition home or self-care (01) ==
LOC: HO.HMCHD 15:23
PROVIDERS: PCP Internal Medicine; Visit Provider Internal Medicine
DX: F51.01 Primary insomnia (principal); M35.02 Sjogren syndrome with lung involvement; R53.83 Other fatigue

== ENCOUNTER → 2024-10-31 15:23 | Outpatient (BNVA) | payer MEDICARE, SELFPAY | PROVIDERS: PCP Internal Medicine; Visit Provider Internal Medicine | DX: M35.00 Sjogren syndrome, unspecified (principal); F51.01 Primary insomnia; E78.5 Hyperlipidemia, unspecified; N18.9 Chronic kidney disease, unspecified; R53.83 Other fatigue; R05.9 Cough, unspecified | CPT/HCPCS: 96127; 99202 ==

== ENCOUNTER 2024-11-19 10:40 | Outpatient (REF) | payer MEDICARE, SELFPAY | END 2024-11-19 10:41 | disposition home or self-care (01) | LOC: HO.HMGCLNP 10:40 | PROVIDERS: Visit Provider Internal Medicine | DX: R05.9 Cough, unspecified (principal) | CPT/HCPCS: 87070; 87205 ==

== ENCOUNTER 2025-02-09 13:19 | Outpatient (REF) | payer MEDICARE, SELFPAY ==
--- NOTE | ~2025-02-09 | MM_ITS ---
EXAMINATION: MM SCREENING DIGITAL BREAST TOMOSYNTHESIS, BILATERAL CLINICAL INFORMATION: Screening. Asymptomatic. COMPARISON: Mammography: Comparison is made with available priors TECHNIQUE: Digital breast mammography with tomosynthesis is performed in both the craniocaudal and mediolateral oblique views along with computer-aided detection (CAD). FINDINGS: There are scattered areas of fibroglandular density (ACR BI-RADS breast composition Category b). There are no significant masses, abnormal calcifications, or other abnormalities. MM/MM tomosynthesis screening BI IMPRESSION: No mammographic evidence of malignancy. ASSESSMENT: BI-RADS BI-RADS 1 - Negative RECOMMENDATION: Routine annual mammography screening. 1 year F/U This examination should not preclude the clinical evaluation of a suspicious palpable abnormality. This patient's information was entered into a reminder system with a target due date for their next mammogram. Electronically signed by: Rosy Rodrgiuez DO 02/11/2025 10:42 AM EDT
--- OUTSIDE RECORDS SUMMARY | 2025-02-09 14:11 | XMS_ITS | Encounter Summary ---
Author Organization [facility] Address [facility] [address] [place] [address] Phone Care Team Providers Care Electronics Production Supervisor Name Role Phone Jason Almaraz MD Primary Care Provider Reason for Referral * Consultation (Within 1 month) - Closed Specialty Diagnoses / Procedures Referred By Alba brady Referred To Contact Rheumatology System, Provider Not In, [facility] [address] [address] Phone: tel: Referral ID Status Reason Start Date Expiration Date Visits Re quested Visits Authorized [id number] Closed 08/24/2017 08/24/2018 1 1 Encounter Details Date Type Department Care Team ([facility] st Contact Info) Description 08/24/2017 Transcribe Orders [facility] Rheumatology [address], [address], [address] [place] [address] System, Provider Not In, [facility] [employer] [address] [place] [id number] Social History Tobacco Use Types Packs/Day Years Used Date Smoking Tobacco: Never Assessed Comments Unknown Sex and Gender Information Value Date Recorded Sex Assigned at Not on file Legal Sex Female 1:40 PM EST Gender Identity Not on file Sexual Orientation Not on file documented as of this encounter Plan of Treatment Not on file documented as of this encounter Procedures Procedure Name Priority Date/Time Associated Diagnosis Comments AMB REFERRAL TO [facility] RHEUMATOLOG[facility] Routine 10/04/2017 12:40 PM EDT documented in this encounter Results * Ambulatory referral to [facility] Rheumatology (10/04/2017 12:40 PM EDT) us Provider Not In System PhD [facility] REFERRALS Fin al Result documented in this encounter Visit Diagnoses Not on filedocumented in this encounter Care Teams Electronics Production Supervisor Relationship Specialty Start Date End Date Jason Almaraz MD [address] [place] [address] [place] [address] PCP - General Internal Medicine 08/22/17 documented as of this encounter Additional Source Comments The information contained in this document represents components of the legal health record. It is not the complete legal health record.[facility]
--- OUTSIDE RECORDS SUMMARY | 2025-02-09 14:11 | XMS_ITS | Patient Health Record ---
Author Organization [facility] Address [address] [place] [address] Care Team Providers Care Medical Microbiologist Name Role Phone Rufina (RETIRED) Jason ALONZO Primary Care Provide r Unavailable Eliecer Quintero Unavailable [phone] Allergies Allergen (clinical drug ingredient) Drug/Non Drug Allergy documented on EMR Reaction Allergy Type Onset Date Status Phenylene Unknown Drug Allergy Active Reason For Referral No Information Medications Medication SIG (Take, Route, Frequency, Duration) Notes Start Date End Date Status Benadryl prn/nightly Active Aleve nightly/prn Active Colyte w Flavor Packs 240 GM as directed Orally as directed for 1 day(s) 12/12/2015 Active Claritin prn Active Tylenol PM Extra Strength prn/nightly Active Problems Problem Type SNOMED Code ICD Code Onset Dates Problem Status W/U Status Risk Notes Problem [id number] Encounter for screening for malignant neoplasm of colon (Z12.11) Active confirmed Problem 630273920 History of adenomatous polyp of colon (Z86.010) Active confirmed Problem Screening for malignant neoplasm of rectum (660479456) Encounter for screening for malignant neoplasm of rectum (Z12.12) Active confirmed Problem 35215028 Preprocedural examination (Z01.818) Active confirmed Plan Of Treatment Future Test Test Name Order Date COLONOSCOPY 12/07/2015 Insurance Providers Payer Name Payer Address Payer Phone Subscriber Number Group Number Insured Name Patient Relationship to Insured Coverage Start Date Coverage End Date [facility] [address] [place], [place] [id number] [phone] [id number] VITOR JORDAN Self - patient is the insured Medical (General) History Medical History History ICD Code Screening colonoscopy in 200 5 with removal of a small tubular adenoma; colonoscopy 02-21-2010 revealed only diverticulosis and internal hemorrhoids Allergies Denies ND,DM,CVA,Lung disease,renal dise ase Surgical History Surgery Date(Month/Year) BTL Bilateral knee replacement 2010
== END 2025-02-09 13:20 | disposition home or self-care (01) ==
LOC: HO.MAMMO 13:19
PROVIDERS: PCP Internal Medicine; Visit Provider Internal Medicine
DX: Z12.31 Encounter for screening mammogram for malignant neoplasm of breast (principal)
CPT/HCPCS: 77063; 77067

== ENCOUNTER → 2025-02-09 13:30 | Outpatient (BNV) | payer MEDICARE, SELFPAY | PROVIDERS: PCP Internal Medicine; Visit Provider Internal Medicine | DX: Z12.31 Encounter for screening mammogram for malignant neoplasm of breast (principal) | CPT/HCPCS: 77063; 77067 ==

== ENCOUNTER 2025-03-09 10:56 | Outpatient (REF) | payer MEDICARE, SELFPAY ==
[2025-03-09 14:48] LABS: Free T4 (Free Thyroxine) 0.92 ng/dL (0.71-1.85)
== END 2025-03-09 10:57 | disposition home or self-care (01) ==
LOC: HO.HMGCLDS 10:56
PROVIDERS: PCP Internal Medicine; Visit Provider Internal Medicine
DX: R94.6 Abnormal results of thyroid function studies (principal); R53.83 Other fatigue
CPT/HCPCS: 36415; 84439; 84443; 86376

== ENCOUNTER 2025-03-13 11:24 | Outpatient (AMB) | payer MEDICARE, SELFPAY ==
--- NOTE | 2025-03-13 11:32 | A.OFFPC_ITS ---
Vital Signs 03/13/25 11:33 Height 5 ft 5 in Weight 260 lb BMI 43.3 BP 138/72 Blood Pressure Location Lt brachial Position Sitting Respiration 19 Pulse 81 Pulse Source Pulse Oximeter Temp 98.1 F Temp Source Oral Pulse Oximetry (%) 97 Oxygen Delivery Method Room Air Intake Visit Reasons: TEJAS from david Walter per Intake Note: Pt is here today for Transfer of Care visit. Allergies No Known Allergies Allergy (Verified 03/13/25 11:43) Medication List - Last Reconciled 03/13/25 by Marilyn Witt MD aspirin 81 mg PO DAILY cholecalciferol (vitamin D3) 25 mcg PO DAILY gsalugjh-kql-emdy-FA-vit K-lut 8 mg iron-400 mcg-50 mcg (Centrum Silver Women) 1 tab PO DAILY prednisone 4 mg PO DAILY zolpidem (Ambien) 10 mg PO BEDTIME 30 days Tobacco use date assessed: 03/13/25 Fall risk assessment: No Falls in past year Last assessed Fall Risk: 03/13/25 Dental Screening Dental Screen Date: 03/13/25 Did you have a dental visit in the last 12 months?: Yes Did you have a dental problem in the last 6 months where you did not have access to dental care?: No Was dental information given to patient?: Patient has dentist HPI TEJAS from [facility]id Walter per HPI Details Patient presents for a new patient visit. Past medical history includes sirs syndrome with interstitial lung disease established with Dr. Read and treated with low dose of prednisone. Patient has not been in favor of trying different medications. For chronic insomnia she has been taking zolpidem on and off but is trying to avoid taking it regularly. [facility] Medical History (Updated 03/13/25 @ 13:22 by Marilyn Witt MD) Hypothyroidism Dysuria Osteoarthritis COVID-19 vaccine series completed Insomnia Interstitial lung disease Dyspnea Obesity Sjogren's syndrome with lung involvement Surgical History Hx of tubal ligation History of total bilateral knee replacement History of bilateral total hip arthroplasty H/O colonoscopy (~05/09/16) Family History Father Lung cancer Mother Alzheimer's disease Social History Household Members: Spouse Housing: House Are you a primary home care manager rn to a significant other at home: No Do you presently have visiting nurse or other home services: No Alcohol intake: never Patient Tobacco Use Status: Never used Tobacco e-Cigarette/Vaping Use: Never Used service: No Current occupational status: unemployed Cognitive needs: No Hearing needs: No Vision needs: Yes (reading glasses) Questionnaire PHQ-9 Over the last 2 weeks, how often have you been bothered by any of the following problems? 1. Little interest or pleasure in doing things: not at all 2. Feeling down, depressed, or hopeless: not at all 3. Trouble falling or staying asleep, or sleeping too much: more than half the days 4. Feeling tired or having little energy: more than half the days 5. Poor appetite or overeating: not at all 6. Feeling bad about yourself - or that you are a failure or have let yourself or your family down: not at all 7. Trouble concentrating on things, such as reading the newspaper or watching television: not at all 8. Moving or speaking so slowly that other people could have noticed. Or the opposite - being so fidgety or restless that you have been moving around a lot more than usual: not at all 9. Thoughts that you would be better off or of hurting yourself in some way: not at all Total score: 4 Depression Screening Interpretation: Negative Depression Screening Done: Yes Source: Developed by Drs. Eliecer Benites, Debra Flower, Jose Martin Perez and colleagues, with an educational ginny from [employer]. Thrive Questionnaire Date Thrive assessed: 10/31/24 AUDIT C Alcohol Use Questionnaire (AUDIT-C) 1. How often do you have a drink containing alcohol?: Never 3. How often do you have six or more drinks on one occasion?: Never Total Score: 0 ELIDA-7 AMB Questionnaire ELIDA-7 Date ELIDA - 7 assessed: 10/31/24 Feeling nervous, anxious, or on edge: 0 = Not at all Not being able to stop or control worryin = Not at all Worrying too much about different things: 0 = Not at all Trouble relaxin = Not at all Being so restless that it is hard to sit still: 0 = Not at all Becoming easily annoyed or irritable: 0 = Not at all Feeling afraid as if something awful might happen: 0 = Not at all Total ELIDA-7 score (0-4 normal; 5-9 mild; 10-14 moderate; 15-21 severe): 0 Source: Developed by Drs. Eliecer Benites, Debra Flower, Jose Martin Perez and colleagues, with an educational ginny from [employer]. Review of Systems Const All systems reviewed & are unremarkable except as noted in HPI and below Eyes Reports no additional complaints ENT Reports no additional complaints Card Reports no additional complaints Resp Reports no additional complaints GI Reports no additional complaints Reports no additional complaints Musc Reports no additional complaints Physical exam (Primary Care) Vital Signs: Last Vital Signs Temp 98.1 F 03/13/25 11:33 Pulse 81 03/13/25 11:33 Resp 19 03/13/25 11:33 BP 138/72 03/13/25 11:33 Pulse Ox 97 03/13/25 11:33 Oxygen Delivery Method Room Air 03/13/25 11:33 BMI result Body Mass Index 43.3 Tobacco/Smoking Status: Tobacco use Status Tobacco use date assessed 03/13/25 03/13/25 11:47 Patient Tobacco Use Status Never used Tobacco 03/13/25 11:32 Tobacco use type 12/15/22 13:08 e-Cigarette/Vaping Use Never Used 03/13/25 11:32 PHQ-9: PHQ-9 Score PHQ-9: Total score 4 03/13/25 11:56 Depression Screening Interpretation: Negative Thrive Assessment: Date of Thrive Assessment Date Thrive assessed 10/31/24 03/13/25 11:32 Const General: no acute distress HENMT Head: Yes normal to inspection Ears: hearing grossly normal bilaterally Face and sinus: Yes normal facial exam Mouth: Normal oral and palatal mucosa present Throat: Yes posterior oropharynx normal Eyes General: appearance normal, both eyes and all related structures Neck Neck: Yes no lymphadenopathy and Yes supple Resp Effort & Inspection: normal respiratory effort Auscultation: clear to auscultation bilaterally Cardio Rhythm: regular rhythm Heart sounds: S1 normal heart sound present and S2 normal heart sound present GI Inspection: Yes normal to inspection Palpation (GI): Soft to palpation Percussion: Yes normal to percussion Auscultation: normal bowel sounds Coding Level of Care Code Est Pt Level 4 (65758) Diagnoses Sjogren's syndrome with lung involvement M35.02 Class 3 severe obesity due to excess calories with body mass index (BMI) of 40.0 to 44.9 in adult, unspecified whether serious comorbidity present E66.01; Z68.41 Obesity type: due to excess calories Obesity classification: adult class 3 (BMI >= 40) Serious obesity comorbidity presence: unspecified whether serious comorbidity present Body mass index: BMI 40.0-44.9 Interstitial lung disease J84.9 Hypothyroidism E03.9 Assessment & Plan Assessment & Plan (1) Sjogren's syndrome with lung involvement: Comment: SSA, SSB, rheumatoid factor, FARIBA positive. CCP antibody, anti ANNALISA, anti double- stranded DNA, Scl 70 antibody negative. ILD treated with prednisone. Code(s): M35.02 - Sjogren syndrome with lung involvement Category: Medical Plan: She is to see a roll operator but there was no indication for treatment (2) Obesity: Code(s): E66.9 - Obesity, unspecified Category: Medical Qualifiers: Obesity type: due to excess calories Obesity classification: adult class 3 (BMI >= 40) Serious obesity comorbidity presence: unspecified whether serious comorbidity present Body mass index: BMI 40.0-44.9 Qualified Code(s): E66.01 - Morbid (severe) obesity due to excess calories; Z68.41 - Body mass index [BMI]40.0-44.9, adult Plan: Decreasing caloric intake increasing physical activity weight loss discussed with the patient (3) Interstitial lung disease: Comment: liliana BLANCO, follows up with Dr. Read Code(s): J84.9 - Interstitial pulmonary disease, unspecified Category: Medical Plan: Controlled on low dose of prednisone and established with pulmonology (4) Hypothyroidism: Comment: Subclinical hypothyroidism borderline elevated TSH level, negative anti peroxidase antibody Code(s): E03.9 - Hypothyroidism, unspecified Category: Medical Plan: Will monitor TSH level Orders: Orders Complete Blood Count Auto Diff 3 Months E66.01 - Morbid (severe) obesity due to excess calories, J84.9 - Interstitial pulmonary disease, unspecified, M35.02 - Sjogren syndrome with lung involvement, Z68.41 - Body mass index [BMI] 40.0- 44.9, adult, Z79.52 - terminal make up operator (current) use of systemic steroids Lipid Panel 3 Months E66.01 - Morbid (severe) obesity due to excess calories, J84.9 - Interstitial pulmonary disease, unspecified, M35.02 - Sjogren syndrome with lung involvement, Z68.41 - Body mass index [BMI] 40.0-44.9, adult, Z79.52 - terminal make up operator (current) use of systemic steroids TSH reflex Free T4 3 Months E66.01 - Morbid (severe) obesity due to excess nancy ories, J84.9 - Interstitial pulmonary disease, unspecified, M35.02 - Sjogren syndrome with lung involvement, Z68.41 - Body mass index [BMI] 40.0-44.9, adult, Z79.52 - intermediate (current) use of systemic steroids UA w Microscopic 3 Months E66.01 - Morbid (severe) obesity due to excess calories, J84.9 - Interstitial pulmonary disease, unspecified, M35.02 - Sjogren syndrome with lung involvement, Z68.41 - Body mass index [BMI] 40.0-44.9, adult, Z79.52 - terminal make up operator (current) use of systemic steroids Comprehensive Aiken. Panel Fast 3 Months E66.01 - Morbid (severe) obesity due to excess calories, J84.9 - Interstitial pulmonary disease, unspecified, M35.02 - Sjogren syndrome with lung involvement, Z68.41 - Body mass index [BMI] 40.0- 44.9, adult, Z79.52 - intermediate (current) use of systemic steroids Magnesium 3 Months E66.01 - Morbid (severe) obesity due to excess calories, J84.9 - Interstitial pulmonary disease, unspecified, M35.02 - Sjogren syndrome with lung involvement, Z68.41 - Body mass index [BMI] 40.0-44.9, adult, Z79.52 - terminal make up operator (current) use of systemic steroids Hemoglobin A1c 3 Months E66.01 - Morbid (severe) obesity due to excess calories, J84.9 - Interstitial pulmonary disease, unspecified, M35.02 - Sjogren syndrome with lung involvement, Z68.41 - Body mass index [BMI] 40.0-44.9, adult, Z79.52 - intermediate (current) use of systemic steroids Vitamin B12 and Folate 3 Months E66.01 - Morbid (severe) obesity due to excess calories, J84.9 - Interstitial pulmonary disease, unspecified, M35.02 - Sjogren syndrome with lung involvement, Z68.41 - Body mass index [BMI] 40.0-44.9, adult, Z79.52 - terminal make up operator (current) use of systemic steroids
[2025-03-13 11:33] VITALS: BP 138/72; PULSE 81; RESP 19; TEMP 36.7; O2SAT 97; BMI 43.3
--- OUTSIDE RECORDS SUMMARY | 2025-03-13 12:03 | XMS_ITS | Clinical Summary ---
Author Organization [facility] Address [facility] [email or web address] [facility] [address] [place] [phone] Phone Care Team Providers Care Teller Vault Name Role Phone Jason Almaraz MD Primary Care Provider Allergies No known active allergies Medications predniSONE (DELTASONE) 10 MG tablet Take 1 tablet (10 mg total) by mouth daily. 10/04/2017 Active Social History Tobacco Use Types Packs/Day Years Used Date Smoking Tobacco: Never Assessed Education Answer Date Recorded Are you interested in more education? Not on mel e 10/20/2022 Are you concerned about learning? Not on file 10/20/2022 No 10/20/2022 No 10/20/2022 Digital Access Answer Date Recorded No 11/18/2022 No 11/18/2022 No 11/18/2022 Reliable internet access at home? Not on file 11/18/2022 Device with a working camera? Not on file Comments Unknown Sex and Gender Information Value Date Recorded Sex Assigned at Not on file Legal Sex Female 1:40 PM EST Gender Identity Not on file Sexual Orientation Not on file Last Filed Vital Signs Vital Sign Reading Time Taken Comments Blood Pressure 155/82 10/04/2017 10:19 AM EDT Pulse 88 10/04/2017 10:19 AM EDT Temperature 36.5 C (97.7 F) 10/04/2017 10:19 AM EDT Respiratory Rate 16 10/04/2017 10:19 AM EDT Oxygen Saturation 97% 10/04/2017 10:20 AM EDT Inhaled Oxygen Concentration - - Weight 116.6 kg (257 lb) 10/04/2017 10:19 AM EDT Height 162.6 cm (5' 4 ) 10/04/2017 10:19 AM EDT Body Mass Index 44.11 10/04/2017 10:19 AM EDT Plan of Treatment Health Maintenance Due Date Last Done Comments Adult Td,Tdap Booster 1945 LIPID PANEL 1945 DEPRESSION SCREENING 1959 SMOKING Hx and SMOKELESS TOBACCO SCREENING 1960 HEPATITIS C SCREENING 1965 OSTEOPOROSIS SCREENING INITIAL (ONE-TIME) 2012 ZOSTER VACCINES (2 of 3) 11/18/2014 09/23/2014 RSV VACCINE (1 - 1-dose 75+ series) 2022 INFLUENZA VACCINE (#1) 2025 8, 04/23/2017, 03/08/2016, Additional history exists COVID-19 VACCINE ( season) 2025 08/30/2020, 08/09/2020 PNEUMOCOCCAL VACCINES (50+ years) Completed 09/01/2015, 04/28/2014 HEPATITIS A VACCINES Aged Out No long er eligible based on patient's age to complete this topic HIB VACCINES Aged Out No longer eligi ble based on patient's age to complete this topic MENINGOCOCCAL VACCINES (ACWY) Aged Out No longer eligible based on patient's age to complete this topic MENINGOCOCCAL VACCINES (B) Aged Out N o longer eligible based on patient's age to complete this topic Medical Devices Not on file [place] [address] [place] [address] MEDICARE PPO BLUE REPLACEMENT MEDICARE PPO BLUE REPLACEMENT MEDICARE PPO BLUE REPLACEMENT MEDICARE PPO BLUE REPLACEMENT MEDICARE PPO BLUE REPLACEMENT MEDICARE PPO BLUE REPLACEMENT MEDICARE PPO BLUE REPLACEMENT [facility] MEDICARE PPO [place] [address] [place] [address] MEDICARE PPO BLUE REPLACEMENT Care Teams Teller Vault Relationship Specialty Start Date End Date Jason Almaraz MD [address] [place] [address] [place] [address] PCP - General Internal Medicine 08/22/17 Additional Source Comments The information contained in this document represents components of the legal health record. It is not the complete legal health record.[facility]
--- OUTSIDE RECORDS SUMMARY | 2025-03-13 12:03 | XMS_ITS | Encounter Summary ---
Author Organization [facility] Address [facility] [employer] [facility] [address] [place] [address] Phone Care Team Providers Care Program Project Analyst Name Role Phone Jason Almaraz MD Primary Care Provider Reason for Referral * Consultation (Within 1 month) - Closed Specialty Diagnoses / Procedures Referred By Alba brady Referred To Contact Rheumatology System, Provider Not In, [facility] [address] [address] Phone: tel: Referral ID Status Reason Start Date Expiration Date Visits Re quested Visits Authorized [id number] Closed 08/24/2017 08/24/2018 1 1 Encounter Details Date Type Department Care Team ([facility] st Contact Info) Description 08/24/2017 Transcribe Orders [facility] Rheumatology [address], [address], [address] [place] [address] System, Provider Not In, [facility] [employer] [address] [place] [phone] Social History Tobacco Use Types Packs/Day Years [...] Date/Time Associated Diagnosis Comments AMB REFERRAL TO [facility] RHEUMATOLOGY Routine 10/04/2017 12:40 PM EDT documented in this encounter Results * Ambulatory referral to [facility] Rheumatology (10/04/2017 12:40 PM EDT) us Provider Not In System PhD AMB [facility] REFERRALS Fin al Result documented in this encounter Visit Diagnoses Not on filedocumented in this encounter Care Teams Program Project Analyst Relationship Specialty Start Date End Date Jason Almaraz MD [address] [place] [address] [place] [address] PCP - General Internal Medicine 08/22/17 documented as of this encounter Additional Source Comments The information contained in this document represents components of the legal health record. It is not the complete legal health record.[facility]
== END 2025-03-13 12:28 | disposition home or self-care (01) ==
LOC: HO.HMCC 11:25
PROVIDERS: PCP Internal Medicine; Visit Provider Internal Medicine
DX: M35.02 Sjogren syndrome with lung involvement (principal); E66.01 Morbid (severe) obesity due to excess calories; Z68.41 Body mass index [BMI] 40.0-44.9, adult; J84.9 Interstitial pulmonary disease, unspecified; E03.9 Hypothyroidism, unspecified

== ENCOUNTER → 2025-03-13 11:24 | Outpatient (BNVA) | payer MEDICARE, SELFPAY | PROVIDERS: PCP Internal Medicine; Visit Provider Internal Medicine | DX: E66.01 Morbid (severe) obesity due to excess calories (principal); M35.02 Sjogren syndrome with lung involvement; J84.9 Interstitial pulmonary disease, unspecified; E03.9 Hypothyroidism, unspecified; Z79.52 Long term (current) use of systemic steroids; Z68.41 Body mass index [BMI] 40.0-44.9, adult | CPT/HCPCS: 96127; 99212 ==

== ENCOUNTER 2025-03-17 13:11 | Outpatient (AMB) | payer MEDICARE, SELFPAY ==
[2025-03-17 13:13] VITALS: BP 136/60; PULSE 77; O2SAT 94; BMI 43.3
--- NOTE | 2025-03-17 13:13 | MHC.OFFVIS ---
Vital Signs 03/17/25 13:13 Height 5 ft 5 in Weight 260 lb 2.327 oz BMI 43.3 BP 136/60 Blood Pressure Location Lt brachial Position Sitting Pulse 77 Pulse Source Pulse Oximeter Pulse Oximetry (%) 94 Oxygen Delivery Method Room Air Intake Visit Reasons: ILD Accompanied by: Self / Same As Patient Allergies No Known Allergies Allergy (Verified 03/17/25 13:16) HPI Comments Details: The patient is a 79-year-old woman with a known history of Sjogren's in addition to interstitial lung disease. She has been relatively stable on the dose of prednisone of 5 mg alternating with 7.5. She became sick recently with a bowl lower respiratory infection cough bronchitis and was treated with amoxicillin with relatively good effect. Although, she continued coughing. After that she had a viral syndrome causing more upper respiratory symptoms. At this point she is better. She did have a recent CT scan of the chest that we personally reviewed. It demonstrated stable interstitial changes specially at the bases which she has the predominant of the issue. She also had a chest x-ray that we also looked at a compared to 2017 demonstrating some slight interval increase in the opacity in the right base, it the underlying respiratory infection which she took amoxicillin. 12/15/2022 the patient is here for pulmonary follow-up visit. The patient overall is doing about the same. She continues on the prednisone. She did follow-up with Rheumatology. She was recommended to continue the prednisone. The Plaquenil was not started. I did recommend that if she felt like she needed additional prednisone therapy then I would recommend she can start the hydrochloroquine at that point. We are monitoring closely her imaging studies and her PFTs. The patient overall is doing about the same. She does complaint of this productive cough. The mucus tends to be moderate in consistency. The color since to be clear. Denies any hemoptysis. Will try to get a sputum culture. in addition to that her last CT scan was back in the fall of 2022. Will plan to repeat the CT scan prior to our next meeting. If there is any worsening of the interstitial lung disease that will have to further address her medical therapy. If she has any worsening symptoms prior to the next visit she should call for an earlier appointment. Otherwise will follow-up then. 06/05/2023 the patient is here for a pulmonary follow-up visit. The patient overall has been doing about the same. Still having episodes of cough intermittently in addition to dyspnea on exertion. Mild in severity. She continues on the prednisone 4 mg daily. The patient did have a recent CT scan of the chest it appears to show stable interstitial lung disease. Although moderate severity. We did talk about considering antifibrotic agents such as Ofev. She also complains of some difficulty swallowing. She sometimes also has cough related to it. She may have a promotility issue. If the patient continues to have symptoms we can try her on azithromycin 3 times a week to help her with the inflammatory changes and also the promotility issues. Although, right now she is doing well so she does need to start any that additional therapies. Will plan to follow-up in 6 months. She has reluctant to do a PFTs and she had a hard time during the last time. Therefore will readdress that issue in 6 months. 12/18/2023 the patient is here for a pulmonary follow-up visit. She has doing about the same. She is going to work on her weight. She is also trying to get more active. She has been pretty sedentary. She continues on the prednisone she has been on 4 mg daily. She will try to decrease it to 4/3 mg alternating days. Always trying to aim for the lowest most effective dose. Her last CT scan was back in April 2023 demonstrating the interstitial lung disease. Will go ahead and plan to repeat her CT scan sometime early spring, unless her symptoms are getting worse. The patient does have some daytime drowsiness. We did talk about considering repeating sleep study but she would like to hold off at this time. She continues to take the prednisone with good effect. 09/11/2024 the patient is here for pulmonary follow-up visit. Overall she is doing okay. She is still using the prednisone 4 mg daily which keeps her stable. Whenever she tries to cut down or if she forgets she sometimes starts getting dryness of the mouth. As far as her breathing she has not seen any worsening of the symptoms. Still has some dyspnea on exertion with mild activity. In terms time she has intermittent cough which is nonproductive in nature. She did undergo a chest x-ray which I personally reviewed in 09/11/2024 and compared to an chest x-ray that she had back in 2019. Looks like some areas are slightly better specially the right base and some areas are about the same. Therefore I do not see any significant changes and she is otherwise stable. I did offer to do pulmonary function studies with the patient rather not do PFTs at this time. Therefore follow-up in 6 months and will decide if any additional imaging studies are warranted them. The patient seems to be pretty content with the dose of prednisone and she rather stay on that dose at this time. She is also using Ambien for sleep. The patient does take medication holidays to minimize the adverse effects. She denies any retrograde amnesia at this time. 03/17/2025 the patient is here for a pulmonary follow-up visit. Overall she is doing okay although she is dealing with the 's health. He was diagnosed with advanced lung cancer. The patient has been continuing to use the prednisone 4 mg daily. She seems to tolerate that okay although her blood pressure was a little elevated today. The patient is for the most part sedentary she does not exercise regularly. Denies any significant worsening her respiratory capacity. The prednisone 4 mg does help her minimize some motor her Sjogren's symptoms. She has not followed up with Rheumatology though. Will plan to request a chest x-ray at this time to assess for any worsening of the interstitial disease but clinically the patient is seems to be okay. Otherwise patient is without any complaints will follow-up in 6-8 months if she has any issues prior to that she will call for an earlier assessment. [facility] Medical History (Updated 03/13/25 @ 13:22 by Marilyn Witt MD) Hypothyroidism Dysuria Osteoarthritis COVID-19 vaccine series completed Insomnia Interstitial lung disease Dyspnea Obesity Sjogren's syndrome with lung involvement Surgical History Hx of tubal ligation History of total bilateral knee replacement History of bilateral total hip arthroplasty H/O colonoscopy (~05/09/16) Family History Father Lung cancer Mother Alzheimer's disease Social History Household Members: Spouse Housing: House Are you a primary direct support professional caregiver to a significant other at home: No Do you presently have visiting nurse or other home services: No Alcohol intake: never Patient Tobacco Use Status: Never used Tobacco e-Cigarette/Vaping Use: Never Used service: No Current occupational status: unemployed Cognitive needs: No Hearing needs: No Vision needs: Yes (reading glasses) Review of Systems Const Denies chills, Denies fatigue, Denies fever(s), Denies weight gain and Denies weight loss Eyes Reports dry eyes ENT Denies dizziness, Denies lip swelling and Denies tongue swelling Card Denies chest pain, Denies leg edema, Denies lightheadedness, Denies palpitations, Denies dyspnea on exertion, Denies orthopnea and Denies other Resp Denies cough and Denies dyspnea on exertion GI Denies hematochezia and Denies change in stool character Musc Denies abnormal gait, Denies muscle weakness, Denies numbness, Denies radiating pain into limb and Denies tingling Neuro Denies abnormal gait, Denies dizziness, Denies numbness and Denies tingling Psych Denies no additional complaints Endo Denies fatigue and Denies palpitations Rodriguez/Lymph Denies easy bleeding and Denies lymphadenopathy Aller/Immun Denies lip swelling and Denies tongue swelling Physical Exam Vital Signs: Last Vital Signs Pulse 77 03/17/25 13:13 BP 136/60 03/17/25 13:13 Pulse Ox 94 03/17/25 13:13 Oxygen Delivery Method Room Air 03/17/25 13:13 BMI result Body Mass Index 43.3 Const General: alert Neck Neck: Yes normal visual inspection, Yes full ROM and Yes no lymphadenopathy Chest Chest palpation & inspection: normal inspection of the chest Resp Auscultation: rales bilateral at the base and in the lower lung ram and diminished lung sounds Cardio Rate: regular rate Rhythm: regular rhythm Heart sounds: S1 normal heart sound present and S2 normal heart sound present GI Palpation (GI): Soft to palpation and nontender Auscultation: normal bowel sounds Skin General skin exam: rashes and/or lesions noted Assessment & Plan Assessment & Plan (1) Dysuria: Code(s): R30.0 - Dysuria Category: Medical (2) Sjogren's syndrome with lung involvement: Comment: SSA, SSB, rheumatoid factor, FARIBA positive. CCP antibody, anti ANNALISA, anti double-stranded DNA, Scl 70 antibody negative. ILD treated with prednisone. Code(s): M35.02 - Sjogren syndrome with lung involvement Category: Medical (3) superintendent terminal systemic steroid user: Code(s): Z79.52 - skilled nursing (current) use of systemic steroids Category: Medical (4) Interstitial lung disease: Comment: liliana BLANCO, follows up with Dr. Read Code(s): J84.9 - Interstitial pulmonary disease, unspecified Category: Medical (5) Obesity: Code(s): E66.9 - Obesity, unspecified Category: Medical Qualifiers: Body mass index: BMI 40.0-44.9 Obesity classification: adult class 3 (BMI >= 40) Obesity type: due to excess calories Serious obesity comorbidity presence: unspecified whether serious comorbidity present Qualified Code(s): E66.01 - Morbid (severe) obesity due to excess calories; Z68.41 - Body mass index [BMI]40.0-44.9, adult (6) Insomnia: Code(s): G47.00 - Insomnia, unspecified Category: Medical Qualifiers: Insomnia type: primary Qualified Code(s): F51.01 - Primary insomnia Plan Continue current dose of prednisone 4mg with slow taper weight management Sleep aid: Ambien as needed CXR F/U 6-8 months Orders: Orders XR chest 2V Today M35.02 - Sjogren syndrome with lung involvement Coding Level of Care Code Est Pt Level 4 (71257) Complex EM visit Add On G2211 Diagnoses Dysuria R30.0 Sjogren's syndrome with lung involvement M35.02 superintendent terminal systemic steroid user Z79.52 Interstitial lung disease J84.9 Class 3 severe obesity due to excess calories with body mass index (BMI) of 40.0 to 44.9 in adult, unspecified whether serious comorbidity present E66.01; Z68.41 Body mass index: BMI 40.0-44.9 Obesity classification: adult class 3 (BMI >= 40) Obesity type: due to excess calories Serious obesity comorbidity presence: unspecified whether serious comorbidity present Primary insomnia F51.01 Insomnia type: primary Time Spent (min) 17
--- OUTSIDE RECORDS SUMMARY | 2025-03-17 16:14 | XMS_ITS | Clinical Summary ---
Author Organization [facility] Address [facility] [employer] [facility] [address] [place] [address] Phone Care Team Providers Care Marriage And Family Therapist Name Role Phone Jason Almaraz MD Primary [...] topic Medical Devices Not on file Insurance [address] [place] [address] MEDICARE PPO BLUE REPLACEMENT MEDICARE PPO BLUE REPLACEMENT MEDICARE PPO BLUE REPLACEMENT MEDICARE PPO BLUE REPLACEMENT MEDICARE PPO BLUE REPLACEMENT MEDICARE PPO BLUE REPLACEMENT MEDICARE PPO BLUE REPLACEMENT [facility] MEDICARE PPO BLUE REPLACEMENT [address] [place] [address] MEDICARE PPO BLUE REPLACEMENT Care Teams Marriage And Family Therapist Relationship Specialty Start Date End Date Jason Almaraz MD [address] [place] [address] [place] [address] PCP - General Internal Medicine 08/22/17 Additional Source Comments The information contained in this document represents components of the legal health record. It is not the complete legal health record.[facility]
--- OUTSIDE RECORDS SUMMARY | 2025-03-17 16:14 | XMS_ITS | Patient Health Record ---
Author Organization [facility] Address [address] [place] [address] Care Team Providers Care Rehabilitation Aide Name Role Phone Rufina (RETIRED) Jason ALONZO Primary Care Provide r Unavailable Eliecer Quintero Unavailable [phone] Allergies Allergen (clinical drug ingredient) Drug/Non Drug [...] Problem Status W/U Status Risk Notes Problem [id number] Encounter for screening for malignant neoplasm of colon (Z12.11) Active confirmed Problem [id number] History of adenomatous polyp of colon (Z86.010) Active confirmed Problem Screening for malignant neoplasm of rectum (133962203) Encounter for screening for malignant neoplasm of rectum (Z12.12) Active confirmed Problem 40745496 Preprocedural examination (Z01.818) Active confirmed Plan Of Treatment Future Test Test Name Order Date COLONOSCOPY 12/07/2015 Insurance Providers Payer Name Payer Address Payer Phone Subscriber Number Group Number Insured Name Patient Relationship to Insured Coverage Start Date Coverage End Date [facility] [address] [place], [place] [id number] [phone] [id number] VITOR JORDAN Self - patient is the insured Medical (General) History Medical History History ICD Code Screening colonoscopy in 200 5 with removal of a small tubular adenoma; colonoscopy 02-21-2010 revealed only diverticulosis and internal hemorrhoids Allergies Denies [place],DM,CVA,Lung disease,renal dise ase Surgical History Surgery Date(Month/Year) BTL Bilateral knee replacement 2010
--- OUTSIDE RECORDS SUMMARY | 2025-03-17 16:14 | XMS_ITS | Encounter Summary ---
Author Organization [facility] Address [facility] [address] [place] [address] Phone Care Team Providers Care Construction Helper Name Role Phone Jason Almaraz MD Primary Care Provider Reason for Referral * Consultation (Within 1 month) - Closed Specialty Diagnoses / Procedures Referred By Alba brady Referred To Contact Rheumatology System, Provider Not In, [facility] [address] [address] Phone: tel: Referral ID Status Reason Start Date Expiration Date Visits Re quested Visits Authorized [id number] Closed 08/24/2017 08/24/2018 1 1 Encounter Details Date Type Department Care Team ([facility] st Contact Info) Description 08/24/2017 Transcribe Orders [facility] Rheumatology [address], [address] Floor, [address] [place] [address] System, Provider Not In, [facility] [place] [place] [id number] Social History Tobacco Use Types Packs/Day Years [...] Date/Time Associated Diagnosis Comments AMB REFERRAL TO [facility] RHEUMATOLOGY Routine 10/04/2017 12:40 PM EDT documented in this encounter Results * Ambulatory referral to [facility] Rheumatology (10/04/2017 12:40 PM EDT) us Provider Not In System PhD AMB [facility] REFERRALS Fin al Result documented in this encounter Visit Diagnoses Not on filedocumented in this encounter Care Teams Construction Helper Relationship Specialty Start Date End Date Jason Almaraz MD [address] [place] [address] [place] [address] PCP - General Internal Medicine 08/22/17 documented as of this encounter Additional Source Comments The information contained in this document represents components of the legal health record. It is not the complete legal health record.[facility]
== END 2025-03-17 13:38 | disposition home or self-care (01) ==
LOC: HO.HPS 13:12
PROVIDERS: PCP Internal Medicine; Visit Provider Hospitalist
DX: R30.0 Dysuria (principal); M35.02 Sjogren syndrome with lung involvement; Z79.52 Long term (current) use of systemic steroids; J84.9 Interstitial pulmonary disease, unspecified; E66.01 Morbid (severe) obesity due to excess calories; Z68.41 Body mass index [BMI] 40.0-44.9, adult; F51.01 Primary insomnia
CPT/HCPCS: 99214; G2211

== ENCOUNTER → 2025-03-17 13:11 | Outpatient (BNVA) | payer MEDICARE, SELFPAY | PROVIDERS: PCP Internal Medicine; Visit Provider Hospitalist | DX: M35.02 Sjogren syndrome with lung involvement (principal); R30.0 Dysuria; J84.9 Interstitial pulmonary disease, unspecified; E66.01 Morbid (severe) obesity due to excess calories; F51.01 Primary insomnia; Z79.52 Long term (current) use of systemic steroids; Z68.41 Body mass index [BMI] 40.0-44.9, adult | CPT/HCPCS: 99212 ==

== ENCOUNTER 2025-05-11 11:42 | Outpatient (REF) | payer MEDICARE, SELFPAY ==
[2025-05-11 13:06] LABS: MANUAL DIFF FLAG NO
[2025-05-11 13:36] LABS: Hematocrit 42.8 % (37.0-47.0); Hemoglobin 13.9 g/dl (12.0-16.0); Imm Gran Abs Auto 0.01 X10*3/uL (0.00-0.03); Imm Gran Pct Auto 0.2 % (0.0-0.4); Lymphocytes Absolute Auto 1.2 X10*3/uL (1.2-4.9); Mean Corpuscular HGB Conc 32.5 g/dl (31.0-35.0); Mean Corpuscular Hemoglobin 29.8 pg (27.0-33.0); Mean Corpuscular Volume 91.8 fL (80.0-98.0); NRBC Abs Auto 0.000 X10*3/uL (0.0-0.012); NRBC Pct Auto 0.0 /100WBC (0.0-0.2); Platelet Count 246 X10*3/uL (160-400); Red Blood Count 4.66 X10*6/uL (4.20-5.50); White Blood Count 4.4 X10*3/uL (4.8-10.8)
[2025-05-11 13:54] LABS: Alanine Aminotransferase 17 U/L (0-31); Albumin Level 3.8 g/dL (3.5-5.0); Alkaline Phosphatase 45 U/L (39-117); Anion Gap 10 (12-20); Aspartate Amino Transferase 29 U/L (5-31); Blood Urea Nitrogen 11 mg/dL (9-16); Calcium 8.7 mg/dL (8.4-10.2); Carbon Dioxide 26 mmol/L (22-29); Chloride 107 mmol/L (96-108); Cholesterol 199 mg/dL (<200); Estimated Glomerular Filt Rate > 60; HDL Cholesterol 44 mg/dL (>40); Magnesium 2.2 mg/dL (1.6-2.6); Potassium 3.7 mmol/L (3.3-5.1); Sodium 139 mmol/L (135-145); Total Protein 7.5 g/dL (6.5-8.0); Triglycerides 112 mg/dL (<150)
[2025-05-11 14:16] LABS: Folate 9.5 ng/mL (> or = 4.0); Vitamin B12 375 pg/mL (200-900)
== END 2025-05-11 11:43 | disposition home or self-care (01) ==
LOC: HO.HMGCLDS 11:42
PROVIDERS: PCP Internal Medicine; Visit Provider Internal Medicine
DX: Z13.1 Encounter for screening for diabetes mellitus (principal); M35.02 Sjogren syndrome with lung involvement; E66.01 Morbid (severe) obesity due to excess calories; Z68.41 Body mass index [BMI] 40.0-44.9, adult; J84.9 Interstitial pulmonary disease, unspecified; Z79.52 Long term (current) use of systemic steroids
CPT/HCPCS: 36415; 80053; 80061; 82607; 82746; 83036; 83735; 84443; 85025

== ENCOUNTER 2025-06-11 10:30 | Outpatient (REF) | payer MEDICARE, SELFPAY ==
[2025-06-11 14:22] LABS: Appearance Urine Cloudy; Glucose Urine UA Negative (Negative); PH 6.0 (5.0-9.0); Specific Gravity - Urine 1.015 (1.005-1.025); UMIC TRIGGER UA YES
--- OUTSIDE RECORDS SUMMARY | 2025-06-11 15:37 | XMS_ITS | Patient Health Record ---
Author Organization [facility] Address [address] [place] [address] Care Team Providers Care Pastry Baker Name Role Phone Rufina (RETIRED) Jason ALONZO Primary Care Provide r Unavailable Eliecer Quintero Unavailable [phone] Allergies Allergen (clinical drug ingredient) Drug/Non Drug Allergy documented on EMR Reaction Allergy Type Onset Date Status Phenylene Unknown Drug Allergy Active Reason For Referral No Information Medications Medication SIG (Take, Route, Frequency, Duration) Notes Start Date End Date Status Benadryl prn/nightly Active Aleve nightly/prn Active Colyte w Flavor Packs 240 GM Solution Reconstituted as directed Orally as directed; Duration: 1 day(s) 12/12/2015 Active Claritin prn Active Tylenol PM Extra Strength prn/nightly Active Social History Social History Additional Details Category Social Info Options Details Miscellaneous: Marital status: Occupation: retired Problems Problem Type SNOMED Code ICD Code Onset Dates Problem Status W/U Status Risk Notes Problem Screening for malignant neoplasm of colon (487667598) Encounter for screening for malignant neoplasm of colon (Z12.11) Active confirmed Problem History of adenomatous polyp of colon (991828561) History of adenomatous polyp of colon (Z86.010) Active confirmed Problem Screening for malignant neoplasm of rectum (234166548) Encounter for screening for malignant neoplasm of rectum (Z12.12) Active confirmed Problem Preprocedural examination (967562181227945) Preprocedural examination (Z01.818) Active confirmed Plan Of Treatment Future Test Test Name Order Date COLONOSCOPY 12/07/2015 Insurance Providers Payer Name Payer Address Payer Phone Subscriber Number Group Number Insured Name Patient Relationship to Insured Coverage Start Date Coverage End Date [facility] [address] [place], [place] [id number] VITOR JORDAN Self - patient is the insured Medical (General) History Medical History History ICD Code Screening colonoscopy in 200 5 with removal of a small tubular adenoma; colonoscopy 02-21-2010 revealed only diverticulosis and internal hemorrhoids Allergies Denies [place],DM,CVA,Lung disease,renal dise ase Surgical History Surgery Date(Month/Year) BTL Bilateral knee replacement 2010
--- OUTSIDE RECORDS SUMMARY | 2025-06-11 15:37 | XMS_ITS | Encounter Summary ---
Author Organization [facility] Address [facility] [place] [facility] [address] [place] [address] Phone Care Team Providers Care Absence Management Consultant Name Role Phone Jason Almaraz MD Primary Care Provider Reason for Referral * Consultation (Within 1 month) - Closed Specialty Diagnoses / Procedures Referred By Alba brady Referred To Contact Rheumatology System, Provider Not In, [facility] [employer] [address] Phone: tel: Referral ID Status Reason Start Date Expiration Date Visits Re quested Visits Authorized [id number] Closed 08/24/2017 08/24/2018 1 1 Encounter Details Date Type Department Care Team ([facility] st Contact Info) Description 08/24/2017 Transcribe Orders [facility] [address] [place] [address], [address] Floor, [address] [place] [address] System, Provider Not In, [facility] [employer] [address] [place] [id number] Social History Tobacco Use Types Packs/Day Years [...] Date/Time Associated Diagnosis Comments AMB REFERRAL TO [facility] RHEUMATOLOGY Routine 10/04/2017 12:40 PM EDT documented in this encounter Results * Ambulatory referral to [facility] Rheumatology (10/04/2017 12:40 PM EDT) us Provider Not In System PhD AMB [facility] REFERRALS Fin al Result documented in this encounter Visit Diagnoses Not on filedocumented in this encounter Care Teams Absence Management Consultant Relationship Specialty Start Date End Date Jason Almaraz MD [address] [place] [address] [place] [address] PCP - General Internal Medicine 08/22/17 documented as of this encounter Additional Source Comments The information contained in this document represents components of the legal health record. It is not the complete legal health record.[facility]
--- OUTSIDE RECORDS SUMMARY | 2025-06-11 15:37 | XMS_ITS | Clinical Summary ---
Author Organization [facility] Address [facility] [employer] [facility] [address] [place] [address] Phone Care Team Providers Care Project Control Analyst Name Role Phone Jason Almaraz MD [...] topic Medical Devices Not on file [place] [address] [address] MEDICARE PPO BLUE REPLACEMENT MEDICARE PPO BLUE REPLACEMENT MEDICARE PPO BLUE REPLACEMENT MEDICARE PPO BLUE REPLACEMENT MEDICARE PPO BLUE REPLACEMENT MEDICARE PPO BLUE REPLACEMENT MEDICARE PPO BLUE REPLACEMENT [facility] MEDICARE PPO BLUE [place] [address] [place] [address] MEDICARE PPO BLUE REPLACEMENT Care Teams Project Control Analyst Relationship Specialty Start Date End Date Jason Almaraz MD [address] [place] [address] [place] [address] PCP - General Internal Medicine 08/22/17 Additional Source Comments The information contained in this document represents components of the legal health record. It is not the complete legal health record.[facility]
== END 2025-06-11 10:31 | disposition home or self-care (01) ==
LOC: HO.HMGCLNP 10:30
PROVIDERS: PCP Internal Medicine; Visit Provider Internal Medicine
DX: E66.01 Morbid (severe) obesity due to excess calories (principal); Z68.41 Body mass index [BMI] 40.0-44.9, adult; M35.02 Sjogren syndrome with lung involvement; J84.9 Interstitial pulmonary disease, unspecified; Z79.52 Long term (current) use of systemic steroids
CPT/HCPCS: 81001

== ENCOUNTER 2025-06-15 12:27 | Outpatient (AMB) | payer MEDICARE, SELFPAY ==
[2025-06-15 12:59] VITALS: BP 122/74; PULSE 88; O2SAT 97; BMI 41.9
--- NOTE | 2025-06-15 12:59 | MHC.PC.OV ---
Vital Signs 06/15/25 12:59 Height 5 ft 5 in Weight 252 lb BMI 41.9 BP 122/74 Blood Pressure Location Lt brachial Position Sitting Pulse 88 Pulse Source Pulse Oximeter Pulse Oximetry (%) 97 Oxygen Delivery Method Room Air Intake Visit Reasons: 3 mo follow up [facility] Representative Required: No Accompanied by: Self / Same As Patient Allergies No Known Allergies Allergy (Verified 06/15/25 13:00) Medication List - Last Reconciled 06/15/25 by Marilyn Witt MD aspirin 81 mg PO DAILY cholecalciferol (vitamin D3) 25 mcg PO DAILY xkfkwkuk-vas-dbiv-FA-vit K-lut 8 mg iron-400 mcg-50 mcg (Centrum Silver Women) 1 tab PO DAILY prednisone 4 mg PO DAILY zolpidem (Ambien) 10 mg PO BEDTIME 30 days Tobacco use date assessed: 06/15/25 Fall risk assessment: No Falls in past year Last assessed Fall Risk: 06/15/25 Dental Screening Dental Screen Date: 06/15/25 Did you have a dental visit in the last 12 months?: Yes Did you have a dental problem in the last 6 months where you did not have access to dental care?: No Was dental information given to patient?: Patient has dentist HPI 3 mo follow up HPI Details Pt presents for f/u. She has been treated with low dose of prednisone for interstitial lung disease and follows up with pulmonology Dr. Read. Patient has been under lot of stress taking care of her diagnosed with lung cancer. [facility] Medical History Hypothyroidism Dysuria Osteoarthritis COVID-19 vaccine series completed Insomnia Interstitial lung disease Dyspnea Obesity Sjogren's syndrome with lung involvement Surgical History Hx of tubal ligation History of total bilateral knee replacement History of bilateral total hip arthroplasty H/O colonoscopy (~05/09/16) Family History Father Lung cancer Mother Alzheimer's disease Social History Household Members: Spouse Housing: House Are you a primary medicare compliance auditor to a significant other at home: No Do you presently have visiting nurse or other home services: No Alcohol intake: never Patient Tobacco Use Status: Never used Tobacco e-Cigarette/Vaping Use: Never Used service: No Current occupational status: unemployed Cognitive needs: No Hearing needs: No Vision needs: Yes (reading glasses) Questionnaire PHQ-9 Over the last 2 weeks, how often have you been bothered by any of the following problems? 8. Moving or speaking so slowly that other people could have noticed. Or the opposite - being so fidgety or restless that you have been moving around a lot more than usual: not at all Source: Developed by Drs. Eliecer Benites, Jose Martin Magallanes and colleagues, with an educational ginny from [employer]. Thrive Questionnaire Date Thrive assessed: 10/31/24 ELIDA-7 AMB Questionnaire ELIDA-7 Date ELIDA - 7 assessed: 06/15/25 Feeling nervous, anxious, or on edge: 0 = Not at all Not being able to stop or control worryin = Not at all Worrying too much about different things: 0 = Not at all Trouble relaxin = Not at all Being so restless that it is hard to sit still: 0 = Not at all Becoming easily annoyed or irritable: 0 = Not at all Feeling afraid as if something awful might happen: 0 = Not at all Total ELIDA-7 score (0-4 normal; 5-9 mild; 10-14 moderate; 15-21 severe): 0 Source: Developed by Drs. Eliecer Benites, Debra Flower, Jose Martin Perez and colleagues, with an educational ginny from [employer]. ELIDA-7 Assessment Billing ELIDA-7 Assessment Tool: ELIDA-7 Assessment 29996 Review of Systems Const All systems reviewed & are unremarkable except as noted in HPI and below Eyes Reports no additional complaints ENT Reports no additional complaints Card Reports no additional complaints Resp Reports no additional complaints GI Reports no additional complaints Reports no additional complaints Physical exam (Primary Care) Vital Signs: Last Vital Signs Pulse 88 06/15/25 12:59 BP 122/74 06/15/25 12:59 Pulse Ox 97 06/15/25 12:59 Oxygen Delivery Method Room Air 06/15/25 12:59 BMI result Body Mass Index 41.9 Tobacco/Smoking Status: Tobacco use Status Tobacco use date assessed 06/15/25 06/15/25 13:03 Patient Tobacco Use Status Never used Tobacco 06/15/25 13:03 Tobacco use type 12/15/22 13:08 e-Cigarette/Vaping Use Never Used 06/15/25 13:03 Thrive Assessment: Date of Thrive Assessment Date Thrive assessed 10/31/24 06/15/25 13:03 Const General: no acute distress HENMT Head: Yes normal to inspection General nose exam: Normal external nose present Neck Neck: Yes no lymphadenopathy and Yes supple Resp Effort & Inspection: normal respiratory effort Auscultation: clear to auscultation bilaterally Cardio Rhythm: regular rhythm Heart sounds: S1 normal heart sound present and S2 normal heart sound present GI Inspection: Yes normal to inspection Palpation (GI): Soft to palpation Percussion: Yes normal to percussion Auscultation: normal bowel sounds Coding Level of Care Code Est Pt Level 4 (90547) Diagnoses Neutropenia D70.9 Postmenopausal Z78.0 Interstitial lung disease J84.9 Hypothyroidism E03.9 Additional Codes ELIDA-7 Assessment Billing - ELIDA-7 Assessment Tool: ELIDA-7 Assessment 97054 ([id number]) Assessment & Plan Assessment & Plan (1) Neutropenia: Code(s): D70.9 - Neutropenia, unspecified Category: Medical Plan: For borderline neutropenia patient will repeat CBC in 1 month (2) Postmenopausal: Code(s): Z78.0 - Asymptomatic menopausal state Category: Medical Plan: Check DEXA, continue vitamin D3 supplement weight-bearing exercises (3) Interstitial lung disease: Comment: On 4 mg of prednisone and follows up with Dr. Read Code(s): J84.9 - Interstitial pulmonary disease, unspecified Category: Medical Plan: Follow-up with pulmonary (4) Hypothyroidism: Comment: Subclinical hypothyroidism borderline elevated TSH level, negative anti peroxidase antibody Code(s): E03.9 - Hypothyroidism, unspecified Category: Medical Plan: Borderline abnormal TSH. We will continue to monitor Orders: Orders Complete Blood Count Man Dif 1 Month D70.9 - Neutropenia, unspecified Vitamin B12 and Folate 1 Month D70.9 - Neutropenia, unspecified XR DEXA appendicular skeleton Today Z78.0 - Asymptomatic menopausal state Lipid Panel 1 Year E03.9 - Hypothyroidism, unspecified, E55.9 - Vitamin D deficiency, unspecified, J84.9 - Interstitial pulmonary disease, unspecified TSH reflex Free T4 1 Year E03.9 - Hypothyroidism, unspecified, E55.9 - Vitamin D deficiency, unspecified, J84.9 - Interstitial pulmonary disease, unspecified Comprehensive [place]. Panel Fast 1 Year E03.9 - Hypothyroidism, unspecified, E55.9 - Vitamin D deficiency, unspecified, J84.9 - Interstitial pulmonary disease, unspecified Complete Blood Count Auto Diff 1 Year E03.9 - Hypothyroidism, unspecified, E55.9 - Vitamin D deficiency, unspecified, J84.9 - Interstitial pulmonary disease, unspecified Vitamin D 25-OH Total 1 Year E03.9 - Hypothyroidism, unspecified, E55.9 - Vitamin D deficiency, unspecified, J84.9 - Interstitial pulmonary disease, unspecified
--- OUTSIDE RECORDS SUMMARY | 2025-06-15 15:39 | XMS_ITS | Patient Health Record ---
Author Organization [facility] Address [address] [place] [address] Care Team Providers Care Nut Tightener Name Role Phone Rufina (RETIRED) Jason ALONZO Primary Care Provide r Unavailable Eliecer Quintero Unavailable [phone] Allergies Allergen (clinical drug ingredient) Drug/Non Drug [...] Problem Screening for malignant neoplasm of colon (156491670) Encounter for screening for malignant neoplasm of colon (Z12.11) Active confirmed Problem History of adenomatous polyp of colon (007532087) History of adenomatous polyp of colon (Z86.010) Active confirmed Problem Screening for malignant neoplasm of rectum (697591209) Encounter for screening for malignant neoplasm of rectum (Z12.12) Active confirmed Problem Preprocedural examination (220202870611553) Preprocedural examination (Z01.818) Active confirmed Plan Of Treatment Future Test Test Name Order Date COLONOSCOPY 12/07/2015 Insurance Providers Payer Name Payer Address Payer Phone Subscriber Number Group Number Insured Name Patient Relationship to Insured Coverage Start Date Coverage End Date [facility] [address] [place], [place] [id number] [phone] [id number] VITOR JORDAN Self - patient is the insured Medical (General) History Medical History History ICD Code Screening colonoscopy in 200 5 with removal of a small tubular adenoma; colonoscopy 02-21-2010 revealed only diverticulosis and internal hemorrhoids Allergies Denies MT,DM,CVA,Lung disease,renal dise ase Surgical History Surgery Date(Month/Year) BTL Bilateral knee replacement 2010
--- OUTSIDE RECORDS SUMMARY | 2025-06-15 15:39 | XMS_ITS | Clinical Summary ---
Author Organization [facility] Address [facility] [employer] [facility] [address] [place] [id number] Phone Care Team Providers Care Superintendent Board Mill Name Role Phone Jason Almaraz MD Primary [...] topic Medical Devices Not on file [place] [address] [place] [address] MEDICARE PPO BLUE REPLACEMENT MEDICARE PPO BLUE REPLACEMENT MEDICARE PPO BLUE REPLACEMENT MEDICARE PPO BLUE REPLACEMENT MEDICARE PPO BLUE REPLACEMENT MEDICARE PPO BLUE REPLACEMENT MEDICARE PPO BLUE REPLACEMENT [facility] MEDICARE PPO BLUE [place] [place] [address] MEDICARE PPO BLUE REPLACEMENT Care Teams Superintendent Board Mill Relationship Specialty Start Date End Date Jason Almaraz MD [address] [place] [address] [place] [address] PCP - General Internal Medicine 08/22/17 Additional Source Comments The information contained in this document represents components of the legal health record. It is not the complete legal health record.[facility]
--- OUTSIDE RECORDS SUMMARY | 2025-06-15 15:39 | XMS_ITS | Encounter Summary ---
Author Organization [facility] Address [facility] [email or web address] [facility] [address] [place] [address] Phone Care Team Providers Care Automotive Tire Worker Name Role Phone Jason Almaraz MD Primary Care Provider Reason for Referral * Consultation (Within 1 month) - Closed Specialty Diagnoses / Procedures Referred By Alba brady Referred To Contact Rheumatology System, Provider Not In, [employer] [address] Phone: tel: Referral ID Status Reason Start Date Expiration Date Visits Re quested Visits Authorized [id number] Closed 08/24/2017 08/24/2018 1 1 Encounter Details Date Type Department Care Team ([facility] st Contact Info) Description 08/24/2017 Transcribe Orders [facility] [address] [place] [address], [address] Floor, [address] [place] [address] System, Provider Not In, [employer] [address] [place] [id number] Social History Tobacco Use Types Packs/Day Years [...] Date/Time Associated Diagnosis Comments AMB REFERRAL TO [facility] RHEUMATOLOGY Routine 10/04/2017 12:40 PM EDT documented in this encounter Results * Ambulatory referral to [facility] Rheumatology (10/04/2017 12:40 PM EDT) us Provider Not In System PhD AMB [facility] REFERRALS Fin al Result documented in this encounter Visit Diagnoses Not on filedocumented in this encounter Care Teams Automotive Tire Worker Relationship Specialty Start Date End Date Jason Almaraz MD [address] [place] [address] [place] [address] PCP - General Internal Medicine 08/22/17 documented as of this encounter Additional Source Comments The information contained in this document represents components of the legal health record. It is not the complete legal health record.[facility]
== END 2025-06-15 15:18 | disposition home or self-care (01) ==
LOC: HO.HMCC 12:28
PROVIDERS: PCP Internal Medicine; Visit Provider Internal Medicine
DX: D70.9 Neutropenia, unspecified (principal); Z78.0 Asymptomatic menopausal state; J84.9 Interstitial pulmonary disease, unspecified; E03.9 Hypothyroidism, unspecified

== ENCOUNTER → 2025-06-15 12:27 | Outpatient (BNVA) | payer MEDICARE, SELFPAY | PROVIDERS: PCP Internal Medicine; Visit Provider Internal Medicine | DX: D70.9 Neutropenia, unspecified (principal); J84.9 Interstitial pulmonary disease, unspecified; E03.9 Hypothyroidism, unspecified; Z78.0 Asymptomatic menopausal state; Z13.39 Encounter for screening examination for other mental health and behavioral disorders | CPT/HCPCS: 96127; 99212 ==